=== PATIENT | female | born 1940 | race Caucasian/White ===

== ENCOUNTER 2018-04-09 15:15 | Inpatient (IN) | payer MEDICARE, BC ==
[2018-04-09] MEDS ORDERED: NS 0.9% 1000 ML* 1,000 ML IV ONE (17:23)
[2018-04-09] MEDS ORDERED: Ondansetron INJ* 2 MG/ML VIAL IV ONE (17:23)
--- NOTE | 2018-04-09 17:25 | ED ---
Influenza-Like Illness - HPI Summary HPI Summary: Pt is a 78 y/o female who presents to the ED c/o N/V for the past 4 days. She began to have chills, which then progressed to nausea and dry-heaving. As per daughter, she has not vomited anything up since she has not eaten much due to her decreased appetite. Pt also c/o fatigue, generalized weakness, SOB, runny nose, and mild dry cough. She denies any abdominal pain, CP, diarrhea, constipation, or sore throat. - History of Current Complaint Chief Complaint: EDFluSymptoms Time Seen by Provider: 04/09/18 16:57 Hx Obtained From: Patient, Family/Repatcher - Daughter Onset/Duration: Gradual Onset, Lasting Days - 4, Still Present Associated Signs & Symptoms: Cough, Vomiting - Allergy/Home Medications Allergies/Adverse Reactions: Allergies Allergy/AdvReac Type Severity Reaction Status Date / Time azithromycin Allergy Hives Verified 04/09/18 18:46 iodine Allergy Hives Verified 04/09/18 18:46 levofloxacin Allergy Rash Verified 04/09/18 18:[address] Allergy Hives Uncoded 02/04/14 08:51 PMH/Surg Hx/FS Hx/Imm Hx Endocrine/Hematology History: Denies: Hx Diabetes, Hx Sickle Cell Disease, Hx Thyroid Disease Cardiovascular History: Reports: Hx Hypertension Respiratory History: Reports: Hx Asthma, Hx Chronic Obstructive Pulmonary Disease (COPD), Hx Pulmonary Embolism - 1975, NO MEDICAL DX FOR EMBOLISM,NEVER REOCCURENCE GI History: Reports: Hx Jaundice - AT AGE 10 HAD "YELLOW JAUNDICE" Denies: Hx Ulcer History: Reports: Hx Renal Disease - abnormal gfr Denies: Other Problems/Disorders Musculoskeletal History: Reports: Hx Arthritis - "a little" Sensory History: Reports: Hx Contacts or Glasses, Other Sensory Impairments - lens replacement Denies: Hx Hearing Aid Opthamlomology History: Reports: Hx Contacts or Glasses, Other Sensory Impairments - lens replacement Neurological History: Denies: Other Neuro Impairments/Disorders - Cancer History Cancer Type, 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 NASAL POLYPECTOMY - 1971, 2000 [facility] [place]. BCC 2002. cataracts- 2001,2009 Hx Anesthesia Reactions: No Infectious Disease History: No Infectious Disease History: Denies: Hx Hepatitis, Hx Human Immunodeficiency Virus (HIV), Hx Shingles, Traveled Outside the [place] in Last 30 Days - Family History Known Family History: Negative: Diabetes - Social History Alcohol Use: None Hx Substance Use: No Substance Use Type: Reports: None Hx Tobacco Use: No Smoking Status (MU): Never Smoked Tobacco Review of Systems Positive: Chills, Fatigue, Other - Generalized weakness. Negative: Fever Positive: Nasal Discharge. Negative: Sore Throat Negative: Chest Pain Positive: Shortness Of Breath, Cough Positive: Vomiting - dry heaves, Nausea, Other - Decreased appetite. Negative: Abdominal Pain All Other Systems Reviewed And Are Negative: Yes Physical Exam - Summary Physical Exam Summary: VITAL SIGNS: Reviewed. GENERAL: Patient is a well-developed and nourished FEMALE who is lying comfortable in the stretcher. Patient is not in any acute respiratory distress. HEAD AND FACE: No signs of trauma. No ecchymosis, hematomas or skull depressions. No sinus tenderness. EYES: PERRLA, EOMI x 2, No injected conjunctiva, no nystagmus. EARS: Hearing grossly intact. Ear canals and tympanic membranes are within normal limits. MOUTH: Oropharynx within normal limits. NECK: Supple, trachea is midline, no adenopathy, no JVD, no carotid bruit, no c- spine tenderness, neck with full ROM. CHEST: Symmetric, no tenderness at palpation LUNGS: Clear to auscultation bilaterally. No wheezing or crackles. CVS: Regular rate and rhythm, S1 and S2 present, no murmurs or gallops appreciated. ABDOMEN: Soft, non-tender. No signs of distention. No rebound no guarding, and no masses palpated. Bowel sounds are normal. EXTREMITIES: FROM in all major joints, no edema, no cyanosis or clubbing. NEURO: Alert and oriented x 3. No acute neurological deficits. Speech is normal and follows commands. SKIN: Dry and warm Triage Information Reviewed: Yes Vital Signs On Initial Exam: Initial Vitals Temp Pulse Resp BP Pulse Ox 101.7 F 92 18 179/81 94 04/09/18 15:16 04/09/18 15:16 04/09/18 15:16 04/09/18 15:16 04/09/18 15:16 Vital Signs Reviewed: Yes Diagnostics - Vital Signs Vital Signs Temp Pulse Resp BP Pulse Ox 04/09/18 15:16 101.7 F 92 18 179/81 94 - Laboratory Result Diagrams: 04/10/18 06:58 04/10/18 06:58 Lab Statement: Any lab studies that have been ordered have been reviewed, and results considered in the medical decision making process. - Radiology CXR Radiology Interpretation Completed By: ED Physician Summary of Radiographic Findings: Cardiomegaly, right diaphragm is elevated. Pending official radiology report. Abdomen XR Radiology Interpretation Completed By: ED Physician Summary of Radiographic Findings: Normal gas pattern, no signs of obstruction. Pending official radiology report. - CT CT A/P CT Interpretation Completed By: Radiologist Summary of CT Findings: 1. Several small stones in the gallbladder and mild dilatation of the CBD which measures 12 mm. Consider ultrasound evaluation. 2. No evidence of obstructive uropathy or bowel obstruction or diverticulitis. ED physician reviewed radiology report. - EKG 18:04 Cardiac Rate: Other Rate - Sinus arhythmia, 93 bpm EKG Rhythm: Sinus Rhythm - Arhythmia ST Segment: Normal EKG Comparison: No Significant Change - Similar compared to 02/16/15 Flu Symptom Course/Dx - Course Assessment/Plan: Pt is a 78 y/o female who presents to the ED c/o N/V for the past 4 days. She began to have chills, which then progressed to nausea and dry- heaving. As per daughter, she has not vomited anything up since she has not eaten much due to her decreased appetite. Pt also c/o fatigue, generalized weakness, SOB, runny nose, and mild dry cough. She denies any abdominal pain, CP , diarrhea, constipation, or sore throat. Initially the patient came in to the emergency department the nurse reported that the patient was positive for the SIRS criteria. The patient was given IV fluids 30 ccs per KG and she was given Rocephin. Blood work without any significant abnormality except for use of 84 family. 705, CPK is 1029, CRP 109, pro-calcitonin is 5.2. Urinalysis is negative for UTI. INFLUENZA A and B is negative. X-ray of the chest shows no acute cardiopulmonary disease. Because of the nausea I gave the patients Zofran. Patient continues to report that his no abdominal pain. CT of the abdomen and pelvis IMPRESSION: 1. Several small stones in the gallbladder and mild dilatation of the CBD which. measures 12 mm. Consider ultrasound evaluation. At this point I will for the right upper quadrant ultrasound. I discussed my physical exam, findings and test results with Dr. Perez from the hospitalist services who accepted the patient for admission. The patient is hemodynamically stable alert and oriented 3. - Diagnoses Provider Diagnoses: Sepsis, Nausea & vomiting - Physician Notifications Discussed Care Of Patient With: Josie Perez Time Discussed With Above Provider: 21:50 Instructed by Provider To: Admit As Inpatient Discharge - Sign-Out/Discharge Documenting (check all that apply): Patient Departure - Admit - Discharge Plan Condition: Stable Disposition: ADMITTED TO [facility] - Billing Disposition and Condition Condition: STABLE Disposition: Admitted to [facility] - Attestation Statements Document Initiated by Jovany: Yes Documenting Scribe: Jeanne Russ Provider For Whom Jovany is Documenting (Include Credential): Blu Iverson MD Scribe Attestation: IJeanne, scribed for Blu Iverson MD on 04/10/18 at 2123. Scribe Documentation Reviewed: Yes Provider Attestation: The documentation as recorded by the Jeanne urbano accurately reflects the service I personally performed and the decisions made by me, Blu Iverson MD Status of Scribe Document: Viewed
[2018-04-09] MEDS ORDERED: NS 0.9% 1000 ML*IV.FLUID IV ONE (17:30)
[2018-04-09] MEDS ORDERED: cefTRIAXone(*) 1 GM in NS 0.9% 50 ML* 50 ML IVPB ONE (17:34)
[2018-04-09] MEDS ORDERED: cefTRIAXone(*) 1 GM ADVAN/BAG ONE (17:47)
[2018-04-09 17:56] LABS: Urine Appearance Clear; Urine Blood 2+ (Negative); Urine Color Yellow; Urine Ketones 2+ (Negative); Urine Protein 1+(30 mg/dL) (Negative); Urine Red Blood Cell 1+(3-5/hpf) (Absent); Urine Specific Gravity 1.018 (1.010-1.030); Urine Urobilinogen Negative (Negative); Urine White Blood Cell Trace(0-5/hpf) (Absent)
[2018-04-09 18:19] LABS: ABS Basophils 0.1 10^3/ul (0-0.2); ABS Eosinophils 0 10^3/ul (0-0.6); ABS Lymphocytes 0.2 10^3/ul (1.0-4.8); ABS Monocytes 0.4 10^3/ul (0-0.8); ABS Neutrophils 7.1 10^3/ul (1.5-7.7); ABS Nucleated RBC 0 10^3/ul; Eosinophil % 0 %; Hematocrit 38 % (35-47); Hemoglobin 12.5 g/dl (12.0-16.0); Lymphocyte % 3.1 %; Mean Corpuscular HGB Conc 33 g/dl (31-36); Mean Corpuscular Hemoglobin 28 pg (27-31); Mean Corpuscular Volume 85 fL (80-97); Mean Platelet Volume 10.2 fL (7.4-10.4); Nucleated Red Blood Cells % 0; Platelet Count 102 10^3/ul (150-450); Red Cell Distribution Width 14 % (10.5-15); White Blood Count 7.8 10^3/ul (3.5-10.8)
[2018-04-09 18:50] LABS: EGFR Non-African American 52.5 (>60)
[2018-04-09] MEDS ORDERED: Acetaminophen TAB* 325 MG PO ONE (21:43)
[2018-04-09] MEDS ORDERED: Ondansetron INJ* 2 MG/ML VIAL IV PRN (22:25)
[2018-04-09] MEDS ORDERED: Acetaminophen TAB* 325 MG PO PRN (22:25)
[2018-04-09] MEDS ORDERED: Albuterol 2.5 MG/3 ML NEB.SOL* (0.083%) INH PRN (22:25)
[2018-04-10] MEDS ORDERED: DOXYcycline IV* 100 MG in NS 0.9% 250 ML* 250 ML IVPB SCH ×2
--- NOTE | 2018-04-10 00:12 | HP ---
CC: Dr. Ramirez * HISTORY AND PHYSICAL: DATE OF ADMISSION: 04/09/18 PRIMARY CARE PROVIDER: Dr. Ramirez. ATTENDING PHYSICIAN WHILE IN THE HOSPITAL: Dr. Josie Magallanes * (report dictated by Aneesh Vincent NP). CHIEF COMPLAINT: 1. Weakness. 2. Not feeling well. 3. Chills. HISTORY OF PRESENT ILLNESS: Ms. Thibodeaux is a 78-year-old female patient who has a history of hypertension, asthma, and a history of allergic rhinitis, who says the last 3 to 4 days, she just has not been feeling well. She has generally felt some malaise, fatigued, tired, just laid in bed all day Friday, decreased appetite, and not feeling well. She does admit to having a cough. She says that she has had more of a runny nose than normal. Denies any sore throat, denies any abdominal pain. She did state that she was having dry heaves and felt nauseous. Denies any pain and denies having any open areas in the skin or redness. Denies any change in medications and says that she did not fall and was not on the ground for prolonged periods of time. She was concerned because of the fact that she just was not feeling well and she was not getting any better and her appetite was not getting any better; so she came into the ED today because she noted that she did have fevers. She came in, had a fever as a high as 103. So because of this she came into the ED, was evaluated. There was concern for infection, but no real obvious source had been found. Because of this, we were asked to evaluate for admission. PAST MEDICAL HISTORY: Significant for: 1. Hypertension. 2. Asthma. 3. Allergic rhinitis. PAST SURGICAL HISTORY: 1. She has had tonsillectomy. 2. Cataract extraction. 3. Skin cancer removal. HOME MEDICATIONS: Include: 1. Multivitamin 1 tablet daily. 2. Calcium carbonate 1 tablet p.o. daily. 3. Tylenol 650 mg every 4 hours as needed. 4. [place] 3 fatty acids 1 capsule daily. 5. Singulair 10 mg p.o. daily. 6. Flonase 50 mcg nasally daily. 7. Prednisone 5 mg daily. 8. Advair 1 puff inhaled b.i.d. ALLERGIES TO MEDICATIONS: Include AZITHROMYCIN, IV DYE, LEVAQUIN, and IODINE. FAMILY HISTORY: Her mother lived to the age of 97. Father at the age of 58 from an [facility]. SOCIAL HISTORY: She does not smoke. She does not drink. Surrogate decision maker is her daughter. REVIEW OF SYSTEMS: There is a documented fever here. She denied having any significant weight change. There was no double vision. She denied having any ear discharge. There is rhinorrhea. There was no sore throat, no thyroid enlargement. She denied having any chest pain. There was no orthopnea. There was no nocturnal dyspnea. There was no abdominal pain. There was again dry heaves with nausea, but no vomiting. There was no dysuria reported. No seizure , no loss of consciousness, no pruritus, and no skin ulcerations. Review of 14 systems completed, all others negative. PHYSICAL EXAMINATION GENERAL: At this time, Mrs. Thibodeaux is a 78-year-old female patient. She is sitting in the ED stretcher. She does not appear to be in any acute distress. She appears to be well-nourished and well-developed. VITAL SIGNS: Blood pressure 150/96, pulse 85, respirations 16, O2 sat is 96%. Temperature again was 103.5 HEENT: Head atraumatic and normocephalic. Eyes: EOMs are intact. Sclerae anicteric and not pale. Throat: Oral mucosa appears to be dry. No oropharyngeal erythema. NECK: Supple. LUNGS: Clear to auscultation bilaterally. They were diminished in the bases, but no wheezes, rales, or rhonchi. HEART: Sounds S1 and S2. Regular rate and rhythm. No murmurs, rubs, or gallops. ABDOMEN: Soft, flat, and nontender. Bowel sounds present. EXTREMITIES: Pulses were 2+. She is moving all 4 extremities with 5/5 strength. NEUROLOGIC: She is awake, alert, oriented x3. Tongue midline. Senior Litigation Paralegal are equal. She had no gross focal deficits. The skin is intact. LABORATORY DATA: Reveal a WBC of 7.8, RBC of 4.40, hemoglobin of 12.5, hematocrit of 38, platelet count of 102, ESR was 84. The PTT was 25.7, fibrinogen was 705. Her sodium was 138, potassium was 3.9, chloride of 103, bicarb 23, BUN 21, creatinine of 1.02. Glucose 102, lactic 0.9, calcium 8.9. Mag 1.9. Total bili 0.5. AST 53, ALT 42, alk phos 50, ammonia 36. CK was 1029 , troponin 0.03. CRP of 109. BNP 155. Amylase normal. Lipase normal. Procalcitonin 5.2. Urine showed 1+ protein, 2+ ketones, 2+ blood, and 1+ rbc. Serology was negative for flu. She had multiple imaging in the ED starting out EKG shows a normal sinus rhythm at a rate of 93. She had no ST elevation or T- wave inversions noted. She had an abdomen x-ray, which showed nonspecific bowel gas. CT of the abdomen and pelvis showed several small stones in the gallbladder and mild dilatation of the common bile duct, which measures 12 mm. Consider ultrasound evaluation. No evidence for obstructive uropathy or bowel obstruction or diverticulitis. Chest x-ray obtained today did show pulmonary edema, may be developing infiltrate in her right lower lobe, possibly left upper lobe. We will wait official report. Old medical records reviewed. ASSESSMENT AND PLAN: Mrs. Thibodeaux is a 78-year-old female patient coming into the ED today with complaints of feeling week and unsteady. On evaluation concerned for infection and she did have evidence of systemic inflammatory response syndrome. She will be admitted under inpatient status for: 1. Systemic inflammatory response syndrome. Etiology is unclear. I am not quite sure as to where the source of infection may be. I am concerned of the lungs given the fact she does have respiratory complaints. Abdominal ultrasound is pending because of the gallbladder duct dilatation. However, her LFTs are stable. Her ALT was mildly elevated. I will repeat that in the morning. I do think that she should get the 20 cc/kg bolus which she has already gotten. I will place her on antibiotics in the form of doxycycline and Rocephin. We will ibanez culture her and we will follow. I did check a Lyme serology as well. We will get a legionella antigen, strep pneumo antigen, and sputum culture if possible. 3. Rhabdomyolysis. Etiology is unclear. Certainly could be related to viral infection. I will go ahead and trend these. We will trend her BMP. We will hydrate and follow for the time being. 4. Hypertension. We will continue meds as prescribed. 5. Asthma. Continue her p.r.n. albuterol. 6. Elevated ESR and CRP. Again etiology unclear. Again, we are ruling out infection. We will monitor for the time being. 7. DVT prophylaxis. She will be placed on heparin subcu. 8. Code status. She wishes to be a DNR. 9. Fluids, electrolytes, and nutrition. She can have a regular diet. TIME SPENT: Time spent on the admission 60 minutes, greater than half the time was spent [id number] with the patient obtaining my history and physical. Other half the time spent going over the plan of care with the patient, implementing the plan of care. I did discuss the plan of care with my attending , Dr. Magallanes. She is in agreement. ANEESH VINCENT NP [id number]/[facility] #: [id number] MTDD
[2018-04-10] MEDS: NS 0.9% 1000 ML* 1,000 ML IV SCH ×2 (01:03→14:28)
[2018-04-10 01:51] LABS: EGFR Non-African American 58.5 (>60)
[2018-04-10] MEDS: Heparin VIAL(*) 5000 UNITS/ML VIAL (FIVE THOUSAND) SUBCUT SCH ×3 (04:46→21:04)
[2018-04-10 07:28] LABS: Hematocrit 31 % (35-47); Hemoglobin 10.1 g/dl (12.0-16.0); Mean Corpuscular HGB Conc 32 g/dl (31-36); Mean Corpuscular Hemoglobin 28 pg (27-31); Mean Corpuscular Volume 86 fL (80-97); Red Blood Count 3.61 10^6/ul (4.00-5.40); Red Cell Distribution Width 15 % (10.5-15); White Blood Count 6.1 10^3/ul (3.5-10.8)
[2018-04-10 07:38] LABS: EGFR Non-African American 69.6 (>60)
[2018-04-10] MEDS: Mometasone/Formoter 200/5 MDI INH SCH (07:57)
[2018-04-10 08:21] LABS: ABS Basophils 0 10^3/ul (0-0.2); ABS Eosinophils 0 10^3/ul (0-0.6); ABS Lymphocytes 0.7 10^3/ul (1.0-4.8); ABS Monocytes 0.5 10^3/ul (0-0.8); ABS Neutrophils 4.8 10^3/ul (1.5-7.7); ABS Nucleated RBC 0 10^3/ul; Eosinophil % 0.7 %; Lymphocyte % 11.7 %; Mean Platelet Volume 10.5 fL (7.4-10.4); Nucleated Red Blood Cells % 0; Platelet Count 77 10^3/ul (150-450)
[2018-04-10] MEDS: predniSONE TAB* 5 MG PO SCH (08:24)
[2018-04-10] MEDS: Montelukast Sodium TAB* 10 MG PO SCH (08:24)
[2018-04-10] MEDS ORDERED: Zosyn per Pharmacy* NOTE FOLLOW UP SCH (09:00)
[2018-04-10] MEDS ORDERED: ZOSYN 3.375 GM x ONE DOSE over 30 miuntes IVPB ×2 (09:00)
--- NOTE | 2018-04-10 10:33 | CONS ---
CONSULTATION REPORT: DATE OF CONSULT: 04/10/18 REQUESTING PROVIDER: Aneesh Vincent NP CONSULTING SERVICE: Infectious Disease. REASON FOR CONSULT: Bacteremia. IMPRESSION: 1. Gram-negative bacilli in both anaerobic bottles, but aerobic bottles were pending. This is in the setting of rigors. I suspect a gastrointestinal including biliary source if this does end up being gram-negative anaerobes. It could also be an aerobe, we do not have that information yet. She has biliary stones, otherwise benign gallbladder on ultrasound and no right upper quadrant pain. She has no dysuria or flank pain. She has not had diarrhea to suggest enterocolitis. 2. Hypertension. 3. Tonsillectomy. RECOMMENDATIONS: I agree with changing her Zosyn while we await speciation. CT abdomen and pelvis did not show any abscess. She has no thoracic symptoms. If the urine culture is negative and this is an anaerobe, then we will obtain a HIDA scan. HISTORY OF PRESENT ILLNESS: This is a 78-year-old woman with hypertension, admitted with rigors. They started Friday. She had some loss of balance, which resolved as did the rigors. She slept all day Friday and then Friday morning felt a bit better, had some more rigors again in the afternoon, same thing yesterday, so she came to the hospital. Her appetite has been off during that time and sips of fluid would cause dry heaves but no vomiting and no diarrhea. Here she had a white count of 7, sed rate of 84, C-reactive protein of 100. The ALT is 42, AST was slightly elevated at 53. Bilirubin was 0.3, alkaline phosphatase 39. CT scan showed biliary stones. Urinalysis showed blood and ketones. Influenza PCR is negative. She was started on ceftriaxone and doxycycline. Chest x-ray was unremarkable. She had no cough or trouble breathing. When the blood cultures came back, she was switched this morning to Zosyn. Today, she complains of no pain, no dysuria, no flank pain. She has been taking sips of water without dry heaves. Her appetite is off still. She had diarrhea after the CT contrast but none before admission. PAST MEDICAL HISTORY: 1. Hypertension. 2. Sepsis in 2015, no cause. 3. Asthma. 4. Allergic rhinitis. 5. Cataract extraction. 6. Status post tonsillectomy. 7. History of skin cancer removal. MEDICATIONS: 1. Tylenol. 2. Albuterol. 3. Heparin subcutaneous injection. 4. Singulair. 5. Zosyn 3.375 g IV every 8 hours. ALLERGIES: AZITHROMYCIN, IV DYE, LEVAQUIN, and IODINE. FAMILY HISTORY: Mother at 97. Father at 58 from [place]. SOCIAL HISTORY: She lives in [place] with her daughter. No travel, no sick contacts. REVIEW OF SYSTEMS: All negative except as noted above to 14-point review in the history of present illness. PHYSICAL EXAM: Vital Signs: Temperature 37, heart rate 70, respiratory rate 18 , blood pressure 143/65, oxygen saturation 94% on room air. In general, she is awake, not in distress. Neurologic: She is oriented x3. Follows commands. Moves all extremities. HEENT: There is no conjunctival hemorrhage. Oropharynx without lesions. Neck: Supple without mass. Heart: Regular rate and rhythm without murmurs, rubs, or gallops. Lungs: Clear to auscultation bilaterally. Abdomen: Soft, nontender, nondistended. There are bowel sounds present. There is no right upper quadrant tenderness to palpation. Skin: There is no rash or splinter hemorrhage. She has multiple SK's on her thorax. Musculoskeletal: There is no spine tenderness to palpation or joint synovitis. LABORATORY DATA: White blood cell count 6, hemoglobin 10, platelets 77,000. Creatinine 0.8. Please see impression and recommendations as outlined above, which I have discussed with Becky Villatoro NP. Thank you for asking me to Ms. Thibodeaux in consultation. [id number]/[facility] #: [id number] [facility]ITAL[facility]eg
--- NOTE | 2018-04-10 12:49 | PN ---
Subjective Date of Service: 04/10/18 Interval History: Pt resting comfortably in bed. Says she feels much better than yesterday after receiving IVF and antibiotics, less fatigued and no longer unstable on her feet. Appetite has returned and ate breakfast. Denies abdominal pain, nausea/ vomiting. Denies dysuria or suprapubic pain. Did have an episode of diarrhea after receiving contrast, but has resolved. Is reporting some shortness of breath on exertion. Uses albuterol prn at home and has not used here. Denies chest pain, dizziness, headache, numbness or tingling in extremities. Objective Active Medications: Acetaminophen (Tylenol Tab*) 650 mg PO Q4H PRN PRN Reason: FEVER/PAIN Albuterol (Ventolin 2.5 Mg/3 Ml Neb.Jane*) 2.5 mg INH Q2H PRN PRN Reason: SOB/WHEEZING Heparin Sodium (Porcine) (Heparin Vial(*)) 5,000 units SUBCUT Q8HR [facility] Last Admin: 04/10/18 04:46 Dose: 5,000 units Sodium Chloride (Ns 0.9% 1000 Ml*) 1,000 mls @ 125 mls/hr IV PER RATE [facility] Last Admin: 04/10/18 01:03 Dose: 125 mls/hr Piperacillin Sod/Tazobactam (Sod 3.375 gm/ Sodium Chloride) 100 mls @ 25 mls/ hr IVPB Q8H [facility] Mometasone Furoate/Formoterol Fumar (Dulera 200/5 Mdi*) 2 puff INH BID [facility] Last Admin: 04/10/18 07:57 Dose: 2 puff Montelukast Sodium (Singulair Tab*) 10 mg PO DAILY [facility] Last Admin: 04/10/18 08:24 Dose: 10 mg Ondansetron HCl (Zofran Inj*) 4 mg IV Q6H PRN PRN Reason: NAUSEA Pharmacy Consult (Zosyn Per Pharmacy*) 1 note FOLLOW UP .ZOSYN PER PHARMACY [facility] Prednisone (Deltasone Tab*) 5 mg PO DAILY [facility] Last Admin: 04/10/18 08:24 Dose: 5 mg Vital Signs - 8 hr 04/10/18 04/10/18 04/10/18 08:00 08:21 11:20 Temperature 98.3 F 98.5 F Pulse Rate 74 76 Respiratory 18 18 18 Rate Blood Pressure 143/65 160/58 (mmHg) O2 Sat by Pulse 94 94 100 Oximetry Oxygen Devices in Use Now: None Eyes: No Scleral Icterus, PERRLA Ears/Nose/Mouth/Throat: NL Teeth, Lips, Gums, Clear Oropharnyx, Mucous Membranes Moist Neck: NL Appearance and Movements; NL JVP, Trachea Midline Respiratory: Symmetrical Chest Expansion and Respiratory Effort - Expiratory wheezes auscultated in bilateral bases Cardiovascular: NL Sounds; No Murmurs; No JVD, RRR, No Edema Abdominal: NL Sounds; No Tenderness; No Distention, No Hepatosplenomegaly, - - No rebound or guarding. Extremities: No Edema Neurological: Alert and Oriented x 3, NL Muscle Strength and Tone Nutrition: Taking PO's Result Diagrams: 04/10/18 06:58 04/10/18 06:58 Microbiology and Other Data: Microbiology 04/09/18 17:41 Anaerobic Blood Culture - Preliminary Blood Venous 04/09/18 17:42 Anaerobic Blood Culture - Preliminary Blood Venous 04/09/18 17:42 Legionella Urinary Antigen - Final Urine Negative Legionella Antigen Streptococcus pneumoniae Ag Screen - Final Negative S. pneumo Antigen 04/09/18 17:42 Influenza Types A,B Antigen - Final Nasal Specimen received for Influenza A/B Molecular testing Assess/Plan/Problems-Billing Assessment: 78 yo female with PMH, asthma, COPD presented with 3 days of fatigue , decreased appetite, rigors. In the ED, tmax was 103.5. Blood cultures positive for gram neg rods in anaerobic bottles, on zosyn. Urine culture pending. U/S with CBD dilation but no visible choledocholitiasis. - Patient Problems (1) Bacteremia due to Gram-negative bacteria Current Visit: Yes Status: Acute Code(s): R78.81 - BACTEREMIA SNOMED Code( s): 855803253471 Comment: - ID following, appreciate reqs - Blood cultures with gram negative rods x2 in anaerobic bottle. Aerobic pending. Antibiotics changed to zosyn in light of this finding. Suspect GI source. - Afebile now, but Tmax 103.5 last night. No leukocytosis. VSS. Recieved IVF bolus and continued on NS at 125mL/hr - Urine culture pending - Urnie strep and legionella negative - U/S: gallbladder with cholithiasis but no abnormal gallbladder wall thickening + neg chen sign, however will consider HIDA if urine culture neg and bacteria is indeed anaerobic (2) Rhabdomyolysis Current Visit: Yes Status: Acute Code(s): M62.82 - RHABDOMYOLYSIS SNOMED Code(s): 002906923 Comment: - Pt denies any particular muscle aches or pain. She does say she was a little sore after shoveling snow last week. This could be secondary to her infection. - CK initially 1029 but trending down with IVF. Renal function WNL. - Continue IVF (3) Asthma Current Visit: No Status: Acute Code(s): J45.909 - UNSPECIFIED ASTHMA, UNCOMPLICATED SNOMED Code(s): 268355499 Comment: - Some mild expiratory wheezing on exam and pt reports some shortness of breath with extertion. Will give albuterol neb. - Continue dulera and PRN albuterol - Has been on 5mg prednisone for about 20yrs, unclear why (4) Thrombocytopenia Current Visit: Yes Status: Acute Code(s): D69.6 - THROMBOCYTOPENIA, UNSPECIFIED SNOMED Code(s): 087611388 Comment: - Could be in the setting of active infection - Will continue to monitor. Pt has had plts 83-114 on previous admissions. (5) DVT prophylaxis Current Visit: No Status: Acute Code(s): KPL4450 - SNOMED Code(s): 442144579 Comment: - Contineu subq heparin (6) Full code status Current Visit: Yes Status: Acute Code(s): Z78.9 - OTHER SPECIFIED HEALTH STATUS SNOMED Code(s): 801099621 Status and Disposition: Inpatient. Anticipate discharge home when medically stable.
[2018-04-10] MEDS: ZOSYN 3.375 GM Q8H per EXTENDED INFUSION IVPB SCH ×4 (14:24→21:04)
[2018-04-10] MEDS ORDERED: cefTRIAXone(*) 1 GM in NS 0.9% 50 ML* 50 ML IVPB SCH (18:00)
[2018-04-10] MEDS: amLODIPine TAB* 5 MG PO SCH (22:02)
[2018-04-11] MEDS: Mometasone/Formoter 200/5 MDI INH SCH ×3 (01:55→19:29)
[2018-04-11] MEDS: Heparin VIAL(*) 5000 UNITS/ML VIAL (FIVE THOUSAND) SUBCUT SCH ×3 (05:58→21:16)
[2018-04-11] MEDS: ZOSYN 3.375 GM Q8H per EXTENDED INFUSION IVPB SCH ×4 (05:58→13:58)
[2018-04-11 06:57] LABS: ABS Basophils 0 10^3/ul (0-0.2); ABS Eosinophils 0.1 10^3/ul (0-0.6); ABS Lymphocytes 1.4 10^3/ul (1.0-4.8); ABS Monocytes 0.6 10^3/ul (0-0.8); ABS Nucleated RBC 0 10^3/ul; Eosinophil % 1.4 %; Hematocrit 30 % (35-47); Hemoglobin 9.9 g/dl (12.0-16.0); Lymphocyte % 22.6 %; Mean Corpuscular HGB Conc 33 g/dl (31-36); Mean Corpuscular Hemoglobin 28 pg (27-31); Mean Corpuscular Volume 86 fL (80-97); Mean Platelet Volume 10.5 fL (7.4-10.4); Nucleated Red Blood Cells % 0; Platelet Count 91 10^3/ul (150-450); Red Blood Count 3.53 10^6/ul (4.00-5.40); Red Cell Distribution Width 15 % (10.5-15); White Blood Count 6.1 10^3/ul (3.5-10.8)
[2018-04-11] MEDS: predniSONE TAB* 5 MG PO SCH (08:15)
[2018-04-11] MEDS: Montelukast Sodium TAB* 10 MG PO SCH (08:15)
[2018-04-11] MEDS: amLODIPine TAB* 5 MG PO SCH (08:15)
[2018-04-11] MEDS ORDERED: Potassium Chlor TAB* 20 MEQ TAB.ER PO ONE ×2 (08:47→11:00)
--- NOTE | 2018-04-11 15:05 | PN ---
Subjective Date of Service: 04/11/18 Interval History: Pt resting comfortably in bed, no acute distress. Denies abdominal pain, nausea/ vomiting. Appetite has returned and tolerating regular diet. Denies chest pain, shortness of breath. Does feel like taking a deep breath is a little harder than usual in certain positions. Denies headache, dizziness, numbness or tingling in extremities. Objective Active Medications: Acetaminophen (Tylenol Tab*) 650 mg PO Q4H PRN PRN Reason: FEVER/PAIN Albuterol (Ventolin 2.5 Mg/3 Ml Neb.Jane*) 2.5 mg INH Q2H PRN PRN Reason: SOB/WHEEZING Amlodipine Besylate (Norvasc Tab*) 5 mg PO DAILY [facility] Last Admin: 04/11/18 08:15 Dose: 5 mg Heparin Sodium (Porcine) (Heparin Vial(*)) 5,000 units SUBCUT Q8HR [facility] Last Admin: 04/11/18 14:05 Dose: 5,000 units Sodium Chloride (Ns 0.9% 1000 Ml*) 1,000 mls @ 125 mls/hr IV PER RATE [facility] Last Admin: 04/10/18 14:28 Dose: 125 mls/hr Piperacillin Sod/Tazobactam (Sod 3.375 gm/ Sodium Chloride) 100 mls @ 25 mls/ hr IVPB Q8H [facility] Stop: 04/11/18 18:00 Last Admin: 04/11/18 13:58 Dose: 25 mls/hr Ceftriaxone Sodium 1 gm/ (Sodium Chloride) 50 mls @ 200 mls/hr IVPB Q24H [facility] Mometasone Furoate/Formoterol Fumar (Dulera 200/5 Mdi*) 2 puff INH BID [facility] Last Admin: 04/11/18 07:44 Dose: 2 puff Montelukast Sodium (Singulair Tab*) 10 mg PO DAILY [facility] Last Admin: 04/11/18 08:15 Dose: 10 mg Ondansetron HCl (Zofran Inj*) 4 mg IV Q6H PRN PRN Reason: NAUSEA Pharmacy Consult (Zosyn Per Pharmacy*) 1 note FOLLOW UP .ZOSYN PER PHARMACY [facility] Stop: 04/11/18 18:00 Prednisone (Deltasone Tab*) 5 mg PO DAILY [facility] Last Admin: 04/11/18 08:15 Dose: 5 mg Vital Signs - 8 hr 12/08/18 12/08/18 12/08/18 07:36 07:47 08:00 Temperature 98.2 F Pulse Rate 71 71 Respiratory 16 16 16 Rate Blood Pressure 171/79 (mmHg) O2 Sat by Pulse 95 94 Oximetry 04/11/18 11:07 Temperature 97.4 F Pulse Rate 67 Respiratory 20 Rate Blood Pressure 155/83 (mmHg) O2 Sat by Pulse 95 Oximetry Oxygen Devices in Use Now: None Eyes: No Scleral Icterus Ears/Nose/Mouth/Throat: NL Teeth, Lips, Gums, Mucous Membranes Moist Neck: NL Appearance and Movements; NL JVP, Trachea Midline Respiratory: Symmetrical Chest Expansion and Respiratory Effort, Clear to Auscultation Cardiovascular: NL Sounds; No Murmurs; No JVD, RRR, No Edema Abdominal: NL Sounds; No Tenderness; No Distention Extremities: No Edema, No Clubbing, Cyanosis Skin: No Rash or Ulcers, - - chronic venous stasis changes to BLE. Skin tags on right neck. Neurological: Alert and Oriented x 3, NL Muscle Strength and Tone Nutrition: Taking PO's Result Diagrams: 04/11/18 06:29 04/11/18 06:29 Microbiology and Other Data: Microbiology 04/09/18 17:41 Anaerobic Blood Culture - Preliminary Blood Venous 04/09/18 17:42 Anaerobic Blood Culture - Preliminary Blood Venous 04/09/18 17:42 Legionella Urinary Antigen - Final Urine Negative Legionella Antigen Streptococcus pneumoniae Ag Screen - Final Negative S. pneumo Antigen 04/09/18 17:42 Influenza Types A,B Antigen - Final Nasal Specimen received for Influenza A/B Molecular testing Assess/Plan/Problems-Billing Assessment: 78 yo female with PMH, asthma, COPD presented with 3 days of fatigue , decreased appetite, rigors. In the ED, tmax was 103.5. Blood cultures positive for ecoli x 3 on zosyn initially, now ceftriaxone. Urine culture neg. U/S with CBD dilation but no visible choledocholitiasis. - Patient Problems (1) Bacteremia due to Gram-negative bacteria Current Visit: Yes Status: Acute Code(s): R78.81 - BACTEREMIA SNOMED Code( s): 032377022985 Comment: - ID following, appreciate reqs - Blood cultures with E coli in 3 bottles. Suspect GI source. Urine culture negative. On zosyn initially, Dr Fay ok with narrowing to ceftriaxone as sensitivites have returned. - U/S: gallbladder with cholithiasis but no abnormal gallbladder wall thickening + neg chen sign, however will do HIDA on Friday to further evaluate as no source has been identified. - Afebile now. No leukocytosis. VSS. Recieved IVF hydration. (2) Rhabdomyolysis Current Visit: Yes Status: Acute Code(s): M62.82 - RHABDOMYOLYSIS SNOMED Code(s): 114665275 Comment: - CK trending down. Renal function WNL. - Pt denies any particular muscle aches or pain. She does say she was a little sore after shoveling snow last week. This could be secondary to her infection. (3) Asthma Current Visit: No Status: Acute Code(s): J45.909 - UNSPECIFIED ASTHMA, UNCOMPLICATED SNOMED Code(s): 919345126 Comment: - Lungs clear to auscultation. No evidence of acute exacerbation - Continue dulera and PRN albuterol - Has been on 5mg prednisone for about 20yrs, unclear why (4) Thrombocytopenia Current Visit: Yes Status: Acute Code(s): D69.6 - THROMBOCYTOPENIA, UNSPECIFIED SNOMED Code(s): 306161919 Comment: - Could be in the setting of active infection. Trending up today. - Will continue to monitor. Pt has had plts 83-114 on previous admissions. (5) DVT prophylaxis Current Visit: No Status: Acute Code(s): OYM9278 - SNOMED Code(s): 646215486 Comment: - Contineu subq heparin (6) Full code status Current Visit: Yes Status: Acute Code(s): Z78.9 - OTHER SPECIFIED HEALTH STATUS SNOMED Code(s): 221221546 Status and Disposition: Inpatient. Anticipate discharge home when medically stable.
[2018-04-11] MEDS: cefTRIAXone(*) 1 GM in NS 0.9% 50 ML* 50 ML IVPB SCH (21:16)
[2018-04-12] MEDS: Heparin VIAL(*) 5000 UNITS/ML VIAL (FIVE THOUSAND) SUBCUT SCH ×3 (05:30→23:06)
[2018-04-12 06:50] LABS: ABS Basophils 0 10^3/ul (0-0.2); ABS Eosinophils 0.2 10^3/ul (0-0.6); ABS Lymphocytes 1.4 10^3/ul (1.0-4.8); ABS Monocytes 0.5 10^3/ul (0-0.8); ABS Neutrophils 2.9 10^3/ul (1.5-7.7); ABS Nucleated RBC 0 10^3/ul; Eosinophil % 3.2 %; Hematocrit 33 % (35-47); Hemoglobin 10.7 g/dl (12.0-16.0); Lymphocyte % 28.1 %; Mean Corpuscular HGB Conc 33 g/dl (31-36); Mean Corpuscular Hemoglobin 28 pg (27-31); Mean Corpuscular Volume 86 fL (80-97); Mean Platelet Volume 10.2 fL (7.4-10.4); Nucleated Red Blood Cells % 0.1; Platelet Count 108 10^3/ul (150-450); Red Blood Count 3.78 10^6/ul (4.00-5.40); Red Cell Distribution Width 15 % (10.5-15); White Blood Count 5.1 10^3/ul (3.5-10.8)
[2018-04-12 07:05] LABS: EGFR Non-African American 65.7 (>60)
[2018-04-12] MEDS: Mometasone/Formoter 200/5 MDI INH SCH ×2 (07:34→19:25)
[2018-04-12] MEDS ORDERED: Potassium Chlor TAB* 20 MEQ TAB.ER PO ONE (07:45)
[2018-04-12] MEDS: predniSONE TAB* 5 MG PO SCH (08:51)
[2018-04-12] MEDS: amLODIPine TAB* 5 MG PO SCH (08:52)
[2018-04-12] MEDS: Montelukast Sodium TAB* 10 MG PO SCH (08:52)
[2018-04-12] MEDS ORDERED: hydrALAZINE IV* 20 MG/ML VIAL IV SLOW PU ONE (10:40)
--- NOTE | 2018-04-12 13:20 | PN ---
Subjective Date of Service: 04/12/18 Interval History: Pt reports she continues to feel better. Today she has been ambulating for the first time since admssion and feels steady on her feet - she does reports she feels a little weak and "winded" after walking a loop around the unit. She denies SOB/CP. No fevers/chills. Reports good appetite. No abdominal pain/Nausea /vomiting/diarrhea Objective Active Medications: Acetaminophen (Tylenol Tab*) 650 mg PO Q4H PRN PRN Reason: FEVER/PAIN Albuterol (Ventolin 2.5 Mg/3 Ml Neb.Jane*) 2.5 mg INH Q2H PRN PRN Reason: SOB/WHEEZING Amlodipine Besylate (Norvasc Tab*) 5 mg PO DAILY [facility]PLAC[facility] BY [facility] Last Admin: 04/12/18 08:52 Dose: 5 mg Heparin Sodium (Porcine) (Heparin Vial(*)) 5,000 units SUBCUT Q8HR [facility]PLAC[facility] Last Admin: 04/12/18 05:30 Dose: 5,000 units Ceftriaxone Sodium 1 gm/ (Sodium Chloride) 50 mls @ 200 mls/hr IVPB Q24H REPLACED BY [facility] Last Admin: 04/11/18 21:16 Dose: 200 mls/hr Mometasone Furoate/Formoterol Fumar (Dulera 200/5 Mdi*) 2 puff INH BID [facility]PL[facility]ED BY [facility] Last Admin: 04/12/18 07:34 Dose: 2 puff Montelukast Sodium (Singulair Tab*) 10 mg PO DAILY [facility] Last Admin: 04/12/18 08:52 Dose: 10 mg Ondansetron HCl (Zofran Inj*) 4 mg IV Q6H PRN PRN Reason: NAUSEA Prednisone (Deltasone Tab*) 5 mg PO DAILY [facility] Last Admin: 04/12/18 08:51 Dose: 5 mg Vital Signs - 8 hr 04/12/18 04/12/18 04/12/18 07:37 07:49 08:00 Temperature 98.0 F Pulse Rate 80 67 Respiratory 18 18 Rate Blood Pressure 185/68 (mmHg) O2 Sat by Pulse 94 96 96 Oximetry 04/12/18 10:21 Temperature Pulse Rate 62 Respiratory Rate Blood Pressure 180/82 (mmHg) O2 Sat by Pulse 95 Oximetry Oxygen Devices in Use Now: None Appearance: 78 yo female sitting up in bed in NAD - A+O x3 Eyes: No Scleral Icterus, PERRLA Ears/Nose/Mouth/Throat: Mucous Membranes Moist Respiratory: Symmetrical Chest Expansion and Respiratory Effort, Clear to Auscultation Cardiovascular: RRR, No Edema Abdominal: NL Sounds; No Tenderness; No Distention Extremities: No Edema, No Clubbing, Cyanosis Skin: No Rash or Ulcers, No Nodules or Sclerosis Neurological: Alert and Oriented x 3, NL Sensation, NL Gait, NL Muscle Strength and Tone Lines/Tubes/Other Access: Clean, Dry and Intact Peripheral IV Nutrition: Taking PO's Result Diagrams: 04/12/18 06:32 04/12/18 06:32 Microbiology and Other Data: Microbiology 04/09/18 17:41 Anaerobic Blood Culture - Preliminary Blood Venous 04/09/18 17:42 Anaerobic Blood Culture - Preliminary Blood Venous 04/09/18 17:42 Legionella Urinary Antigen - Final Urine Negative Legionella Antigen Streptococcus pneumoniae Ag Screen - Final Negative S. pneumo Antigen 04/09/18 17:42 Influenza Types A,B Antigen - Final Nasal Specimen received for Influenza A/B Molecular testing Assess/Plan/Problems-Billing Assessment: 78 yo female with PMH, asthma, COPD presented with 3 days of fatigue , decreased appetite, rigors. In the ED, tmax was 103.5. Blood cultures positive for ecoli x 3 on zosyn initially, now ceftriaxone. Urine culture neg. U/S with GB dilation but no visible choledocholitiasis. - Patient Problems (1) Bacteremia due to Gram-negative bacteria Comment: - much improvement clinically - ID following, appreciate recommendations. On zosyn initially, ID -> ceftriaxone per sensitivites - Blood cultures with E coli in 3 bottles. Suspect GI source. Urine culture negative. Repeat BC negative to date - U/S: gallbladder with cholithiasis but no abnormal gallbladder wall thickening - neg chen sign, she does have biliary stones - plan for HIDA on Friday to further evaluate as no source has been identified. NPO after midnight (2) Rhabdomyolysis Comment: - CK trending down. Renal function WNL. - Pt denies any particular muscle aches or pain. She does say she was a little sore after shoveling snow last week. This could be secondary to her infection. (3) Thrombocytopenia Comment: - Could be in the setting of active infection. Trending up - Will continue to monitor. Pt has had plts 83-114 on previous admissions. (4) Asthma Comment: - No evidence of acute exacerbation - Continue dulera and PRN albuterol - Has been on 5mg prednisone for about 20yrs, unclear why (5) DVT prophylaxis Comment: - subq heparin (6) Full code status Status and Disposition: Inpatient. Anticipate discharge home when medically stable.
[2018-04-12] MEDS: cefTRIAXone(*) 1 GM in NS 0.9% 50 ML* 50 ML IVPB SCH (23:06)
[2018-04-13] MEDS: Heparin VIAL(*) 5000 UNITS/ML VIAL (FIVE THOUSAND) SUBCUT SCH ×3 (05:15→21:04)
[2018-04-13 06:14] LABS: ABS Basophils 0 10^3/ul (0-0.2); ABS Eosinophils 0.2 10^3/ul (0-0.6); ABS Lymphocytes 1.5 10^3/ul (1.0-4.8); ABS Monocytes 0.6 10^3/ul (0-0.8); ABS Neutrophils 3.6 10^3/ul (1.5-7.7); ABS Nucleated RBC 0 10^3/ul; Eosinophil % 3.1 %; Hematocrit 32 % (35-47); Hemoglobin 10.4 g/dl (12.0-16.0); Lymphocyte % 25.2 %; Mean Corpuscular HGB Conc 33 g/dl (31-36); Mean Corpuscular Hemoglobin 28 pg (27-31); Mean Corpuscular Volume 85 fL (80-97); Nucleated Red Blood Cells % 0; Platelet Count 147 10^3/ul (150-450); Red Blood Count 3.75 10^6/ul (4.00-5.40); Red Cell Distribution Width 15 % (10.5-15); White Blood Count 5.9 10^3/ul (3.5-10.8)
[2018-04-13 06:40] LABS: EGFR Non-African American 73.8 (>60)
[2018-04-13] MEDS: Mometasone/Formoter 200/5 MDI INH SCH ×2 (07:30→19:54)
[2018-04-13] MEDS: amLODIPine TAB* 5 MG PO SCH (08:21)
--- NOTE | 2018-04-13 14:43 | PN ---
Subjective Date of Service: 04/13/18 Interval History: Patient resting on bed on assessment. Reports she feels she is improving since admission. Reports diarrhea today. She states she has had 5 episodes of diarrhea today. Denies abd pain, nausea, vomiting. Reports mild weakness, but has been out of bed to walk yesterday and plans to walk again today Denies chest pain, palpitations, sob, dizziness, fever, chills. Patient awaiting HIDA scan Objective Active Medications: Acetaminophen (Tylenol Tab*) 650 mg PO Q4H PRN PRN Reason: FEVER/PAIN Albuterol (Ventolin 2.5 Mg/3 Ml Neb.Jane*) 2.5 mg INH Q2H PRN PRN Reason: SOB/WHEEZING Amlodipine Besylate (Norvasc Tab*) 5 mg PO DAILY [facility] Last Admin: 04/13/18 08:21 Dose: 5 mg Heparin Sodium (Porcine) (Heparin Vial(*)) 5,000 units SUBCUT Q8HR [facility] Last Admin: 04/13/18 05:15 Dose: 5,000 units Ceftriaxone Sodium 1 gm/ (Sodium Chloride) 50 mls @ 200 mls/hr IVPB Q24H [facility] Last Admin: 04/12/18 23:06 Dose: 200 mls/hr Mometasone Furoate/Formoterol Fumar (Dulera 200/5 Mdi*) 2 puff INH BID [facility] Last Admin: 04/13/18 07:30 Dose: 2 puff Montelukast Sodium (Singulair Tab*) 10 mg PO DAILY [facility] Last Admin: 04/12/18 08:52 Dose: 10 mg Ondansetron HCl (Zofran Inj*) 4 mg IV Q6H PRN PRN Reason: NAUSEA Prednisone (Deltasone Tab*) 5 mg PO DAILY [facility] Last Admin: 04/12/18 08:51 Dose: 5 mg Vital Signs - 8 hr 04/13/18 04/13/18 04/13/18 07:39 08:00 11:24 Temperature 97.6 F 98.3 F Pulse Rate 72 68 Respiratory 17 20 18 Rate Blood Pressure 169/68 146/71 (mmHg) O2 Sat by Pulse 95 95 96 Oximetry Oxygen Devices in Use Now: None Appearance: Comfortable, NAD Eyes: No Scleral Icterus Ears/Nose/Mouth/Throat: Mucous Membranes Moist Neck: NL Appearance and Movements; NL JVP Respiratory: Symmetrical Chest Expansion and Respiratory Effort, Clear to Auscultation Cardiovascular: NL Sounds; No Murmurs; No JVD, RRR, No Edema Abdominal: NL Sounds; No Tenderness; No Distention Lymphatic: No Cervical Adenopathy Extremities: No Edema Skin: No Rash or Ulcers Neurological: Alert and Oriented x 3 Nutrition: - - NPO Result Diagrams: 04/13/18 05:49 04/13/18 05:49 Additional Lab and Data: Laboratory Results - last 24 hr 04/13/18 04/13/18 05:49 05:49 WBC 5.9 RBC 3.75 L Hgb 10.4 L Hct 32 L MCV 85 MCH 28 MCHC 33 RDW 15 Plt Count 147 L MPV 10.0 Neut % (Auto) 60.9 Lymph % (Auto) 25.2 Hale % (Auto) 10.1 Eos % (Auto) 3.1 Baso % (Auto) 0.7 Absolute Neuts (auto) 3.6 Absolute Lymphs (auto) 1.5 Absolute Monos (auto) 0.6 Absolute Eos (auto) 0.2 Absolute Basos (auto) 0 Absolute Nucleated RBC 0 Nucleated RBC % 0 Sodium 145 Potassium 3.5 Chloride 110 Carbon Dioxide 27 Anion Gap 8 BUN 11 Creatinine 0.76 Est GFR ( Amer) 89.3 Est GFR (Non-Af Amer) 73.8 BUN/Creatinine Ratio 14.5 Glucose 96 Calcium 8.4 L Total Bilirubin 0.30 AST 28 ALT 36 Alkaline Phosphatase 40 Total Protein 5.4 L Albumin 3.0 L Globulin 2.4 Albumin/Globulin Ratio 1.3 Microbiology and Other Data: Microbiology 04/09/18 22:19 Blood Venous Aerobic Blood Culture - Preliminary No Growth Day 3 04/09/18 22:19 Blood Venous Anaerobic Blood Culture - Preliminary No Growth Day 3 04/09/18 17:41 Blood Venous Aerobic Blood Culture - Preliminary No Growth Day 3 04/09/18 17:41 Blood Venous Anaerobic Blood Culture - Final Escherichia Coli 04/09/18 17:42 Blood Venous Aerobic Blood Culture - Final Escherichia Coli 04/09/18 17:42 Blood Venous Anaerobic Blood Culture - Final Escherichia Coli 04/09/18 17:42 Urine Urine Culture - Final No Growth (<1,000 CFU/mL) 04/09/18 17:42 Urine Legionella Urinary Antigen - Final Negative Legionella Antigen 04/09/18 17:42 Urine Streptococcus pneumoniae Ag Screen - Final Negative S. pneumo Antigen 04/09/18 17:42 Nasal Influenza Types A,B Antigen - Final Specimen received for Influenza A/B Molecular testing Diagnostic Imaging: . EKG Data: . Assess/Plan/Problems-Billing Assessment: 78 yo female with PMH, asthma, COPD presented with 3 days of fatigue , decreased appetite, rigors. In the ED, tmax was 103.5. Blood cultures positive for ecoli x 3 on zosyn initially, now ceftriaxone. Urine culture neg. U/S with GB dilation but no visible choledocholitiasis. - Patient Problems (1) Bacteremia due to Gram-negative bacteria Comment: - Much improvement clinically - ID following, appreciate recommendations. Initially on Zosyn, ID -> Ceftriaxone per sensitivites - Blood cultures with E coli in 3 bottles. Suspect GI source. Urine culture negative. Repeat BC negative to date - U/S: gallbladder with cholithiasis but no abnormal gallbladder wall thickening - neg chen sign, she does have biliary stones - HIDA being completed today. Awaiting results - Discussed with Dr Elaine who will see patient tomorrow. He suspects plan will be antibiotics and follow up as an outpatient. - I have also left message with GI and would appreciate their consult (2) Diarrhea Comment: - I suspect this is due to antibiotics, but I have ordered stool cultures for further evaluation (3) Thrombocytopenia Comment: - Could be in the setting of active infection. Trending up. Now 147 - Will continue to monitor. Pt has had plts 83-114 on previous admissions. (4) Asthma Comment: - No evidence of acute exacerbation - Continue dulera and PRN albuterol - Has been on 5mg prednisone for about 20yrs, unclear why (5) SIRS (systemic inflammatory response syndrome) Comment: - Resolved - On admission met SIRS with HR > 90, Temp > 100.4, RR > 20 (6) DVT prophylaxis Comment: - subq heparin Status and Disposition: Inpatient. Anticipate discharge home when medically stable. Attending: Geronimo Hanson
[2018-04-13] MEDS: Montelukast Sodium TAB* 10 MG PO SCH (16:34)
[2018-04-13] MEDS: predniSONE TAB* 5 MG PO SCH (16:34)
[2018-04-13] MEDS: Clotrimazole 1% CREAM* 45 GM TOPICAL SCH (21:03)
[2018-04-13] MEDS: cefTRIAXone(*) 1 GM in NS 0.9% 50 ML* 50 ML IVPB SCH (21:03)
[2018-04-14] MEDS: Heparin VIAL(*) 5000 UNITS/ML VIAL (FIVE THOUSAND) SUBCUT SCH ×2 (06:07→14:31)
[2018-04-14 06:27] LABS: ABS Basophils 0 10^3/ul (0-0.2); ABS Eosinophils 0.1 10^3/ul (0-0.6); ABS Lymphocytes 1.5 10^3/ul (1.0-4.8); ABS Monocytes 0.6 10^3/ul (0-0.8); ABS Neutrophils 3.5 10^3/ul (1.5-7.7); ABS Nucleated RBC 0 10^3/ul; Eosinophil % 2.5 %; Hematocrit 33 % (35-47); Hemoglobin 11.1 g/dl (12.0-16.0); Lymphocyte % 26.5 %; Mean Corpuscular HGB Conc 34 g/dl (31-36); Mean Corpuscular Hemoglobin 29 pg (27-31); Mean Corpuscular Volume 86 fL (80-97); Mean Platelet Volume 9.9 fL (7.4-10.4); Nucleated Red Blood Cells % 0.1; Platelet Count 191 10^3/ul (150-450); Red Blood Count 3.86 10^6/ul (4.00-5.40); Red Cell Distribution Width 14 % (10.5-15); White Blood Count 5.8 10^3/ul (3.5-10.8)
[2018-04-14 07:40] LABS: EGFR Non-African American 71.6 (>60)
[2018-04-14] MEDS: predniSONE TAB* 5 MG PO SCH (08:21)
[2018-04-14] MEDS: amLODIPine TAB* 5 MG PO SCH (08:21)
[2018-04-14] MEDS: Montelukast Sodium TAB* 10 MG PO SCH (08:21)
[2018-04-14] MEDS: Clotrimazole 1% CREAM* 45 GM TOPICAL SCH (08:23)
[2018-04-14] MEDS: Mometasone/Formoter 200/5 MDI INH SCH ×2 (08:27→19:21)
[2018-04-14] MEDS ORDERED: Fluticasone NASAL SPRAY 50MCG* 16 gm SPRAY BTL BOTH NARES SCH (09:00)
--- NOTE | 2018-04-14 11:57 | CONS ---
CC: Dr. [facility]; [facility] SURGICAL CONSULTATION REPORT: DATE OF CONSULT: 04/14/18 HISTORY OF PRESENT ILLNESS: I was contacted by the hospitalist service yesterday to evaluate Ms. Thibodeaux, a 78-year-old female, who was admitted with concern for urinary tract infection and bacteremia with E. Coli. The patient was started on antibiotics, improved over time and did undergo a workup which did include abdominal ultrasound and a CAT scan. These studies showed evidence of gallstones but without any gallbladder inflammation; however, when the patient showed no evidence of urinary tract infection despite E. Coli bacteremia , the consideration was for the possibility of bacteremia secondary to biliary disease. The patient did present with fatigue and nausea and vomiting to the hospital on 04/09/18. She has been followed by the hospitalist service as well as Infectious Disease. Yesterday, the patient also underwent a HIDA scan. These images and the report were reviewed. Indeed, all images were reviewed by me today. The nuclear study did show open common and cystic bile ducts. It did show slow visualization of the gallbladder; however, at 2 hours and 30 minutes. Today, the patient states she is doing well, feels well. Her appetite is still minimal, but she denies any nausea or vomiting. PAST MEDICAL HISTORY: Asthma. She takes chronic steroids low dose. She also has hypertension. No abdominal surgeries. MEDICATIONS: List reviewed. ALLERGIES: List reviewed. FAMILY HISTORY: Noncontributory. Biliary disease in first cousins, but otherwise parents and children have had no biliary disorders. REVIEW OF SYSTEMS: Intermittent shortness of breath and asthma. Fever upon arrival, but defervesced promptly and has remained in normal numbers. No abdominal pain. Nausea as described. No change in bowel habits. No dysuria. No endocrine disorders. No bleeding or clotting disorders. No neurologic disorders. PHYSICAL EXAM: She is afebrile. Vital signs are stable. Alert and oriented x3. In no apparent distress. Head, Ears, Eyes, Nose, and Throat: Normocephalic and atraumatic. Sclerae anicteric. Abdomen is soft, nondistended , nontender. No hernias or masses noted. No CVA tenderness. Extremities within normal limits. DIAGNOSTIC STUDIES/LAB DATA: Labs reviewed with normal LFTs throughout her stay. Imaging reviewed. IMPRESSION: Bacteremia of unclear etiology, likely urinary tract infection. I do not recognize this to be a biliary event. I can see the patient as an outpatient if she would prefer. At this point, she is happy not to undergo a surgical intervention. Recommend continued antibiotics and followup with Infectious Disease. No surgical intervention. However, again if the patient or discharging physicians wish to have her referred to our offices for cholelithiasis as an outpatient, that is not unreasonable. Otherwise, you can recall us as needed. [id number]/CPS #: [id number] [facility]ASE
[2018-04-14 16:53] VITALS: BP 141/47
--- NOTE | 2018-04-15 00:30 | DS ---
CC: Dr. Abhsihek Elaine; Dr. David Ramirez * DISCHARGE SUMMARY: DATE OF ADMISSION: 04/09/18. DATE OF DISCHARGE: 04/14/18. FINAL DISCHARGE DIAGNOSES: 1. E. coli bacteremia, unclear etiology, possibly from her urinary tract infection that could have been partially treated versus biliary source given her dilated common bile duct at 13 mm, on chronic prednisone. 2. Hypertension. 3. Rhabdomyolysis. 4. Thrombocytopenia. 5. History of asthma. HOSPITAL COURSE: The patient presented to [facility] on 04/09/18 for generalized malaise, weakness, not feeling well with positive chills, decreased appetite, and has some dry heaves, and nauseated without actually vomiting. In the emergency room, she was seen and evaluated. She was noticed to have temperature 103.5, tachycardic. Her blood work did not actually reflect any evidence of leukocytosis. However, she did have elevated of CPK of 1029, and her cultures revealed positive E. coli bacteremia on 2 sets, pansensitive. Given her nausea and vomiting in the emergency room, she underwent abdominal CT scan, which revealed positive gallstone, small, with mild dilation of the common bile duct. Without evidence of bowel obstruction or uropathy that was followed with abdominal ultrasound revealed common bile duct at 13 mm with no visible choledocholithiasis with multiple small gallstones. The patient was covered with intravenous antibiotics throughout the hospital stay with Rocephin and IV fluid. She continued to improve and her urine culture actually was negative. A HIDA scan was followed given her ultrasound and CT scan and the HIDA scan on 04/13/18 shows patent cystic duct with no evidence of acute cholecystitis. I did consult with Surgery and I did speak with Dr. Elaine. At that time, the patient did not have a very strong evidence as the source where the E. coli presented. It is my impression and my high suspicion that it is probably biliary given her gallstones which are very small, which are more problematic than large gallstones that can pass through the common bile duct, cause transient obstruction whether this has been captured at the time of the imaging or she simply passed it before arrival is very hard to tell. At the same time, I do not disagree that it could have been UTI, however, urine cultures were obtained at the same time as the blood and the urine culture was negative. Therefore, kindly Dr. Elaine will follow up the patient as an outpatient and have further discussion whether or not the patient should proceed with elective cholecystectomy given her positive gallstone. PHYSICAL EXAM: Her vitals, temperature 98.3, pulse 85, respiratory rate 16, satting 93%, blood pressure 141/47. Generally, she is awake, alert, oriented, in no apparent cardiac distress. Head and Neck: Normocephalic, atraumatic. Supple. Lungs are clear to auscultation bilaterally. Cardiovascular: S1, S2. Regular rate and rhythm. Abdomen: Positive bowel sounds, soft, nontender. No rebound. No guarding. Extremities: No pedal edema. Skin: She does have slight purpuric rash over the back papular, nonvesicular, and not in cluster, and pruritic in nature. DIAGNOSTIC STUDIES: Abdominal ultrasound showed gallstones with dilated common bile duct, 04/09/18. Ultrasound 04/09/18, no thickened gallbladder wall, dilated common bile duct 15 mm with no evidence of choledocholithiasis. HIDA scan 04/13/18, negative. Microbiology, she has a positive blood culture x2 for E. coli with negative urine culture, negative influenza A and B, and negative for C. diff. Diagnostics throughout the hospital stay, the patient had CBC and chemistry all fairly normal, specifically she has a normal total bili, never had a spike in her bilirubin. However, incidentally she had a positive CPK of 1029, which decreased down to 306 with gentle IV fluid. DISCHARGE AND ASSESSMENT AND PLAN: For the bacteremia E. coli, again I suspect that it is probably secondary to biliary versus urine, although urine culture is negative. Given the finding on the ultrasound and a positive gallstone with dilated common bile duct, although the gallbladder was not affected, I believe this was a transient choledocholithiasis with ascending cholangitis, which probably the culprit is from the gallbladder gallstone. I will defer that for further discussion with surgery as an outpatient. She was given prescription for Augmentin p.o. to complete a 14 days' total course. For her diarrhea, C. diff was ruled out. For her thrombocytopenia, which is transient secondary to her sepsis, resolved. For her rhabdomyolysis, which resolved with IV fluid. DISCHARGE MEDICATIONS: 1. The patient to start taking amlodipine 5 mg daily secondary to elevated blood pressure diagnosed in this hospital stay. 2. Augmentin 875 b.i.d. for 9 more days. 3. Clotrimazole cream to apply to the back given her rash. 4. Continue her medication as per home, calcium with vitamin D. 5. Multivitamin. 6. Singulair 10 daily. 7. Tylenol p.r.n. 8. Advair b.i.d. 9. [place]-3. 10. Prednisone 5 mg daily. 11. Flonase allergy. DISCHARGE INSTRUCTIONS: The patient to follow up with Dr. Abhishek Elaine in 1 month. To follow up with the PCP in 1 to 2 weeks. [id number]/[facility] #: [id number] [facility]
[2018-04-15] MEDS: Mometasone/Formoter 200/5 MDI INH SCH (07:21)
== END 2018-04-14 17:00 | disposition home or self-care (01) | DRG 872 ==
LOC: ED 15:15 → MED 22:21
PROVIDERS: ADMIT Internal Medicine; ATTEND Internal Medicine
DX: A41.51 Sepsis due to Escherichia coli [E. coli] (principal); N39.0 Urinary tract infection, site not specified; M62.82 Rhabdomyolysis; I10 Essential (primary) hypertension; D69.6 Thrombocytopenia, unspecified; J45.909 Unspecified asthma, uncomplicated; K80.80 Other cholelithiasis without obstruction; R19.7 Diarrhea, unspecified; Z85.828 Personal history of other malignant neoplasm of skin; Z79.1 Long term (current) use of non-steroidal anti-inflammatories (NSAID); Z79.52 Long term (current) use of systemic steroids; Z79.899 Other long term (current) drug therapy; Z88.1 Allergy status to other antibiotic agents; Z91.041 Radiographic dye allergy status; Z91.048 Other nonmedicinal substance allergy status; Z82.49 Family history of ischemic heart disease and other diseases of the circulatory system
CPT/HCPCS: 36415; 71046; 74019; 74176; 76705; 78226; 80048; 80053; 80076; 81003; 81015; 82140; 82150; 82550; 83605; 83690; 83735; 83880; 84145; 84443; 84484; 85025; 85060; 85384; 85652; 85730; 86140; 86618; 87040; 87077; 87086; 87186; 87205; 87493; 87899; 93005; 94640; 99283; A9270-GY; A9537; J0360; J0696; J1644; J2405; J2543; J7512

== ENCOUNTER 2018-12-13 12:31 | Inpatient (IN) | payer MEDICARE, BC ==
--- NOTE | 2018-12-13 13:48 | ED ---
Complex/Multi-Sys Presentation - HPI Summary HPI Summary: This patient is a 78 year old F [facility] by daughter with a chief complaint of lightheadedness since three days ago. Patients daughter reports pt has been sleeping a lot, feeling lightheaded, nauseous and dry heaving. Patient denies abdominal pain, pain, burning urination, and vomiting. Pt has PMHx of COPD. Pt was admitted back in April for an E. Coli infection. - History Of Current Complaint Chief Complaint: EDDizziness Time Seen by Provider: 12/13/18 13:24 Hx Obtained From: Patient Onset/Duration: Lasting Days, Still Present Timing: Days Aggravating Factor(s): Nothing Alleviating Factor(s): Nothing Associated Signs And Symptoms: Positive: Nausea, Other - pos - lightheaded, and fatigue. Negative: Vomiting, Abdominal Pain - Allergies/Home Medications Allergies/Adverse Reactions: Allergies Allergy/AdvReac Type Severity Reaction Status Date / Time azithromycin Allergy Hives Verified 04/09/18 18:46 Iodinated Contrast Media Allergy Hives Verified 04/11/18 08:51 [Iodinated Contrast- Oral and IV Dye] iodine Allergy Hives Verified 04/09/18 18:46 levofloxacin Allergy Rash Verified 04/09/18 18:[address] Allergy Hives Uncoded 02/04/14 08:51 PMH/Surg Hx/FS Hx/Imm Hx Endocrine/Hematology History: Denies: Hx Diabetes, Hx Sickle Cell Disease, Hx Thyroid Disease Cardiovascular History: Reports: Hx Hypertension Respiratory History: Reports: Hx Asthma, Hx Chronic Obstructive Pulmonary Disease (COPD), Hx Pulmonary Embolism - 1975, NO MEDICAL DX FOR EMBOLISM,NEVER REOCCURENCE GI History: Reports: Hx Jaundice - AT AGE 10 HAD "YELLOW JAUNDICE" Denies: Hx Ulcer History: Reports: Hx Renal Disease - abnormal gfr Denies: Other Problems/Disorders Musculoskeletal History: Reports: Hx Arthritis - "a little" Sensory History: Reports: Hx Contacts or Glasses, Other Sensory Impairments - lens replacement Denies: Hx Hearing Aid Opthamlomology History: Reports: Hx Contacts or Glasses, Other Sensory Impairments - lens replacement Neurological History: Denies: Other Neuro Impairments/Disorders - Cancer History Cancer Type, Location and Year: basal cell facial Hx Chemotherapy: No Hx Radiation Therapy: No Hx Palliative Cancer Treatment: No - Surgical History Surgery Procedure, Year, and Place: TONSILLECTOMY - 1945. NASAL POLYPECTOMY - 1971, 2000 [facility]. BCC 1971, 2002. cataracts- 2000,2008 Hx Anesthesia Reactions: No Infectious Disease History: No Infectious Disease History: Denies: Hx Hepatitis, Hx Human Immunodeficiency Virus (HIV), Hx Shingles, Traveled Outside the [place] in Last 30 Days - Family History Known Family History: Negative: Diabetes - Social History Alcohol Use: None Hx Substance Use: No Substance Use Type: Reports: None Hx Tobacco Use: No Smoking Status (MU): Never Smoked Tobacco Review of Systems Positive: Nausea. Negative: Abdominal Pain, Vomiting Negative: burning Neurological: Other - pos - lightheaded All Other Systems Reviewed And Are Negative: Yes Physical Exam - Summary Physical Exam Summary: GENERAL: Patient is a well-developed and nourished F who is lying comfortable in the stretcher. Patient is not in any acute respiratory distress. HEAD AND FACE: Normocephalic EYES: PERRLA, EOMI x 2. EARS: Hearing grossly intact. MOUTH: Oropharynx within normal limits. Mucous membrane dry. NECK: Supple, trachea is midline, no adenopathy, no JVD, no carotid bruit. CHEST: Symmetric, no tenderness at palpation LUNGS: Clear to auscultation bilaterally. No wheezing or crackles. CVS: Regular rate and rhythm, S1 and S2 present, no murmurs or gallops appreciated. ABDOMEN: Soft, non-tender. Bowel sounds are normal. No abnormal abdominal pulsations. EXTREMITIES: Full ROM in all major joints, no edema, no cyanosis or clubbing. NEURO: Alert and oriented x 3. No acute neurological deficits. Speech is normal and follows commands. SKIN: Dry and warm Triage Information Reviewed: Yes Vital Signs On Initial Exam: Initial Vitals Temp Pulse Resp BP Pulse Ox 98.4 F 94 14 123/85 92 12/13/18 12:34 12/13/18 12:34 12/13/18 12:34 12/13/18 12:34 12/13/18 12:34 Vital Signs Reviewed: Yes Diagnostics - Vital Signs Vital Signs Temp Pulse Resp BP Pulse Ox 12/13/18 12:34 98.4 F 94 14 123/85 92 - Laboratory Result Diagrams: 12/14/18 05:48 12/14/18 05:48 Lab Statement: Any lab studies that have been ordered have been reviewed, and results considered in the medical decision making process. - Radiology CXR Radiology Interpretation Completed By: Radiologist Summary of Radiographic Findings: CXR reveals, per radiologist, IMPRESSION: Stigmata of obstructive lung disease. No acute pulmonary or cardiac process evident. ED physician has reviewed this radiology report. - CT Abdomen/Pelvis CT CT Interpretation Completed By: Radiologist Summary of CT Findings: Abdomen/Pelvis CT reveals, per radiologist, IMPRESSION: #. Moderate prominence of the common bile duct increased over the 2018 exam. No visualized calcified stone or obstructing lesion. #. Cholelithiasis without additional CT abnormality of the gallbladder. #. No evidence for appendicitis. Small appendicolith noted. #. Colonic diverticulosis without findings of acute diverticulitis. #. Negative for obstructive uropathy. ED physician has reviewed this radiology report. - Ultrasound Gallbladder US Ultrasound Interpretation Completed By: Radiologist Summary of Ultrasound Findings: Gallbladder US reveals, per radiologist, IMPRESSION: # Hepatosteatosis. # Intra and extrahepatic biliary dilatation and mild pancreatic duct dilatation. Heterogeneous echogenicity biliary sludge or small stones visualized at the distal common bile duct. #. Cholelithiasis without additional abnormality of the gallbladder. Negative for sonographic Hansen's sign. ED physician has reviewed this radiology report. - EKG 13:33 Cardiac Rate: NL - 77 bpm EKG Rhythm: Sinus Rhythm EKG Comparison: No Significant Change Summary of EKG Findings: An EKG at 13:33 reveals normal sinus rhythm 77 bpm, PACs, old inferior infarction. No significant change from 04/09/18 Complex Multi-Symp Course/Dx Course Of Treatment: This patient is a 78 year old F presenting to [facility] accompanied by daughter with a chief complaint of lightheadedness since three days ago. Physical exam findings are nml except mucous membrane is dry. Blood work obtained. WBC is 11.3, Plt Count is 141, INR is 1.60, Potassium is 3.4, Creatinine is 1.30, Glucose is 121, Total Bilirubin is 1.10, AST is 273, ALT is 220, Alkaline Phosphatase is 137, B-Natriuretic Peptide is 196. An EKG at 13: 33 reveals normal sinus rhythm 77 bpm, PACs, old inferior infarction. No significant change from 04/09/18. CXR reveals, per radiologist, IMPRESSION: Stigmata of obstructive lung disease. No acute pulmonary or cardiac process evident. Abdomen/Pelvis CT reveals, per radiologist, IMPRESSION: #. Moderate prominence of the common bile duct increased over the 2018 exam. No visualized calcified stone or obstructing lesion. #. Cholelithiasis without additional CT abnormality of the gallbladder. #. No evidence for appendicitis. Small appendicolith noted. #. Colonic diverticulosis without findings of acute diverticulitis. #. Negative for obstructive uropathy. Gallbladder US reveals, per radiologist, IMPRESSION: # Hepatosteatosis. # Intra and extrahepatic biliary dilatation and mild pancreatic duct dilatation. Heterogeneous echogenicity biliary sludge or small stones visualized at the distal common bile duct. #. Cholelithiasis without additional abnormality of the gallbladder. Negative for sonographic Hansen's sign. ED physician has reviewed this radiology report. In the ED course the patient was given Zofran, Acetaminophen , Piperacill and fluids. Case discussed with hospitalist. I discussed results with patient. The patient agrees with this plan - Diagnoses Provider Diagnoses: Choledocholithiasis, Fever - Physician Notifications Discussed Care Of Patient With: Rowdy Barraza Time Discussed With Above Provider: 15:43 Instructed by Provider To: Other - Discussed case with Dr. Barraza to see whether she would need ERCP. 15:44 - Discussed case with Dr. Nicholson, who accepts pt for admission. - Critical Care Time Critical Care Time: 30-74 min Discharge - Sign-Out/Discharge Documenting (check all that apply): Patient Departure - Admit Patient Received Moderate/Deep Sedation with Procedure: No - Discharge Plan Condition: Stable Disposition: ADMITTED TO [facility] - Billing Disposition and Condition Condition: STABLE Disposition: Admitted to [facility] - Attestation Statements Document Initiated by Jovany: Yes Documenting Scribe: Julia Dallas Provider For Whom Jovany is Documenting (Include Credential): Dr. Tony Fu MD Scribe Attestation: Julia Ely scribed for Dr. Tony Fu MD on 12/14/18 at 1204. Scribe Documentation Reviewed: Yes Provider Attestation: The documentation as recorded by the Julia urbano accurately reflects the service I personally performed and the decisions made by me, Dr. Tony Fu MD Status of Scribe Document: Viewed
[2018-12-13] MEDS ORDERED: Ondansetron INJ* 2 MG/ML VIAL IV ONE (14:00)
[2018-12-13] MEDS ORDERED: NS 0.9% 1000 ML** 1,000 ML IV ONE (14:00)
[2018-12-13 14:08] LABS: ABS Lymphocytes 0.6 10^3/ul (1.0-4.8); ABS Monocytes 0.5 10^3/ul (0-0.8); ABS Neutrophils 10.2 10^3/ul (1.5-7.7); Hematocrit 37 % (35-47); Hemoglobin 12.3 g/dL (12.0-16.0); Lymphocyte % 5.3 %; Mean Corpuscular HGB Conc 33 g/dL (31-36); Mean Corpuscular Hemoglobin 28 pg (27-31); Mean Corpuscular Volume 85 fL (80-97); Mean Platelet Volume 10.2 fL (7.4-10.4); Platelet Count 141 10^3/uL (150-450); Red Blood Count 4.39 10^6 /uL (3.70-4.87); Red Cell Distribution Width 15 % (10-15); White Blood Count 11.3 10^3/uL (3.5-10.8)
[2018-12-13 14:22] LABS: Activated Partial Thrombo Time 33.6 seconds (26.0-38.0); INR 1.6 (0.82-1.09)
[2018-12-13 14:24] LABS: Albumin 3.8 g/dL (3.2-5.2); Albumin/Globulin Ratio 1.2 (1-3); BUN/Creatinine Ratio 13.1 (8-20); Calcium 8.7 mg/dL (8.6-10.3); EGFR African American 48.1 (>60); EGFR Non-African American 39.7 (>60); Globulin 3.1 g/dL (2-4); Potassium 3.4 mmol/L (3.5-5.0); Total Bilirubin 1.1 mg/dL (0.2-1.0); Total Protein 6.9 g/dL (6.4-8.9)
[2018-12-13 14:26] LABS: Troponin I 0.03 ng/mL (<0.04)
[2018-12-13] MEDS ORDERED: Acetaminophen TAB* 325 MG PO ONE (15:38)
[2018-12-13] MEDS ORDERED: Piperacillin/Tazobac ADVAN(*) 3.375 GM in NS 0.9% 100 ML* 100 ML IVPB ONE (15:38)
--- NOTE | 2018-12-13 16:31 | ADMNOTE ---
Subjective Date of Service: 12/13/18 Interval History: ADMISSION HISTORY AND PHYSICAL EXAM: Allergies Allergy/AdvReac Type Severity Reaction Status Date / Time azithromycin Allergy Hives Verified 04/09/18 18:46 Iodinated Contrast- Oral and Allergy Hives Verified 04/11/18 08:51 IV Dye iodine Allergy Hives Verified 04/09/18 18:46 levofloxacin Allergy Rash Verified 04/09/18 18:[address] Allergy Hives Uncoded 02/04/14 08:51 Home Medications Medication Instructions Recorded Confirmed Type Calcium Carbonate-Vitamin D 600 mg PO DAILY 02/12/13 04/09/18 History [Calcium 500 + D 500-125 mg-Unit] Montelukast Sodium [Singulair] 10 mg PO DAILY 02/12/13 04/09/18 History Multiple Vitamins W/ Minerals 1 cap PO DAILY 02/12/13 04/09/18 History [Multi Complete] Acetaminophen TAB* [Tylenol TAB*] 650 mg PO Q4H PRN 04/26/13 04/09/18 History Fluticasone Propionate [Flonase 50 mcg NA DAILY 02/16/15 04/09/18 History Allergy Relief] Fluticasone-Salmeterol 250-50* 1 puff INH BID 02/16/15 04/09/18 History [Advair Diskus 250-50*] [place]-3 Fatty Acids/Fish Oil 1 cap PO DAILY 02/16/15 04/09/18 History [[place] 3 1,000 mg Softgel] predniSONE TAB* [Deltasone TAB*] 5 mg PO DAILY 02/16/15 04/09/18 History Amoxicillin/Clavulanate TAB* 875 mg PO BID 9 Days #18 tab 04/14/18 Rx [Augmentin TAB 875*] Clotrimazole 1% CREAM* 1 applic TOPICAL BID 7 Days #1 tube 04/14/18 Rx [Clotrimazole 1%*] amLODIPine TAB* [Norvasc 5 mg TAB*] 5 mg PO DAILY 30 Days #30 tab 04/14/18 Rx HPI: The patient was in her usual state of health until 3 days ago. She developed dry heaves and shaking chills. She did not take her temperature. She did not take any of her meds today. She last took prednisone yesterday. Family History: Findings - Father age 58 of [place], mother lived to age 97. Social History: Findings - Lives with her daughter Daniel Rucker who is her SDM. Has a second daughter also, who also came to the ED. Past Medical History: Findings - HTN, asthma, allergic rhinitis, tonsillectomy, cataract surgery, skin cancer removal Review of Systems - Measurements Intake and Output: Intake and Output Last 24 Hours 12/11/18 12/12/18 12/13/18 12/14/18 06:59 06:59 06:59 06:59 Weight 176 lb - Review of Systems Constitutional Symptoms: Negative: Weight Gain, Weight Loss, Weakness, Fatigue, Fever, Night Sweats, Unexplained Falls, Other Dermatology: Positive: Normal HEENT: Positive: Normal Eyes: Positive: Normal Thyroid: Positive: Normal Pulmonary: Positive: Asthma, Exercise Intolerance Cardiology: Positive: Normal Gastroenterology: Positive: Nausea, Vomiting, Anorexia Genital - Urinary: Positive: Normal Musculoskeletal: Positive: Joint Pain Endocrinology: Positive: Normal Hematologic/Lymphatic: Negative: Anemia, Easy Bruising, Hx Leukemia, Hx Lymphoma, Use of Anticoagulant, Use of Antiplatelet Drugs, Other Neurology: Positive: Normal Psychiatry: Positive: Normal Allergic/Immunologic: Negative: Hx Anaphylaxis, Hx Angioedema, Hx Environmental, Hx Seasonal, Asthma, Hx HIV, Immunocompromise, Swollen Glands LymphNodes, Other Objective Vital Signs - 8 hr 12/13/18 12/13/18 12/13/18 12:34 13:43 13:44 Temperature 98.4 F Pulse Rate 94 79 80 Respiratory 14 15 19 Rate Blood Pressure 123/85 151/79 (mmHg) O2 Sat by Pulse 92 90 92 Oximetry 12/13/18 12/13/18 12/13/18 14:00 14:14 14:44 Temperature Pulse Rate 83 79 74 Respiratory 13 17 14 Rate Blood Pressure 135/67 128/72 (mmHg) O2 Sat by Pulse 91 93 96 Oximetry 12/13/18 12/13/18 12/13/18 15:30 15:36 16:00 Temperature 102.4 F Pulse Rate 84 98 Respiratory 20 31 Rate Blood Pressure (mmHg) O2 Sat by Pulse 94 93 Oximetry Oxygen Devices in Use Now: Nasal Cannula Appearance: Alert, partly up on ED stretcher. Looks fatigued but otherwise comfortable. Eyes: No Scleral Icterus Neck: NL Appearance and Movements; NL JVP, No Thyroid Enlargement, Masses Respiratory: Symmetrical Chest Expansion and Respiratory Effort, Clear to Auscultation, Clear to Percussion Cardiovascular: NL Sounds; No Murmurs; No JVD, RRR, No Edema, - Abdominal: NL Sounds; No Tenderness; No Distention, No Hepatosplenomegaly, - Extremities: No Edema, No Clubbing, Cyanosis, - Skin: No Nodules or Sclerosis, - - 6 cm lipoma overlying L clavicle. Many seborrheic keratoses entire chest and back. 1 x 2 cm red raised lesion L upper chest present for years. Neurological: Alert and Oriented x 3, NL Sensation Result Diagrams: 12/13/18 13:59 12/13/18 13:59 Assess/Plan/Problems-Billing Assessment: - Patient Problems (1) Cholangitis Current Visit: Yes Status: Acute Code(s): K83.09 - OTHER CHOLANGITIS SNOMED Code(s): 63223203 Comment: Cholelithiasis but no other CT abnormalities of GB. CBD mildly dilated. Abnl LFT's, shaking chills and leukocytosis. Pip/nilton started in ED. 2 blood C&S sent. Continue pip/nilton, IV fluids. CMP 12/14. (2) Asthma Current Visit: No Status: Chronic Code(s): J45.909 - UNSPECIFIED ASTHMA, UNCOMPLICATED SNOMED Code(s): 785628177 Comment: Continue fluticasone/salmeterol - Has been on 5mg prednisone for about 20yrs, will give IV hydrocortisone while acutely ill. (3) Thrombocytopenia Current Visit: No Status: Acute Code(s): D69.6 - THROMBOCYTOPENIA, UNSPECIFIED SNOMED Code(s): 145332831 Comment: Platelets 147 on 12/13 Pt has had plts 83-114 on previous admissions. CBC 12/14. (4) Elevated INR Current Visit: Yes Status: Acute Code(s): R79.1 - ABNORMAL COAGULATION PROFILE SNOMED Code(s): 354662105 Comment: Pt denies use of warfarin or possession of warfarin for years. Vit K 10m subcut ordered, repeat INR 12/14.
[2018-12-13] MEDS ORDERED: Phytonadione SUBCUT/IM Adult* 10 MG/ML AMP (IM or SQ not preferred route) SUBCUT ONE (16:35)
[2018-12-13] MEDS ORDERED: Acetaminophen TAB* 325 MG PO PRN (16:37)
[2018-12-13] MEDS ORDERED: Enoxaparin(*) 40 MG/0.4 ML SYR SUBCUT SCH (17:00)
[2018-12-13] MEDS: D5W NS 0.9% 20Meq KCL 1000 ML* 1,000 ML IV SCH (18:06)
[2018-12-13] MEDS: Mometasone/Formoter 200/5 MDI INH SCH (19:04)
[2018-12-13] MEDS: Piperacillin/Tazobac ADVAN(*) 3.375 GM in NS 0.9% 100 ML* 100 ML IVPB SCH (20:21)
[2018-12-13] MEDS: Montelukast Sodium TAB* 10 MG PO SCH (20:23)
[2018-12-13] MEDS: Hydrocortisone INJ* 100 MG VIAL IV SCH (20:42)
--- NOTE | 2018-12-13 21:07 | CONS ---
GASTROENTEROLOGY CONSULT: DATE OF CONSULT: 12/13/18 CONSULTING PHYSICIAN:. Tony Fu, ER; Frederick Case, Hospitalist; David Ramirez, Family Medicine. REASON FOR CONSULTATION: Fever, chills, and elevated LFTs with a dilated bile duct, probably having filling defects. 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 She denies any pain. Her daughter who lives with her clarified the history tremendously (Daniel Rucker , [phone]) and was the one who insisted she come to the hospital when she had refused the evening before. She says that she was okay on , 12/10/18, but then felt kind of tired in the afternoon and lay down. The same thing occurred on 12/11/18, and then after a similar sequence on Friday, she began feeling cold in the afternoon and took to bed, covered with blankets. She refused to come to the emergency room. There was no vomiting or any focal pain. There was no diarrhea. Today, the same thing occurred and her family insisted she come in. She states similar symptoms last year resulted in extensive testing especially regarding her gallbladder. Gallstones were seen, but in the common duct. A HIDA scan was negative. Cholecystectomy was deferred. Blood cultures were positive for E. coli. She also had an infection with signs of sepsis in February 2015, the blood cultures were negative. PAST MEDICAL HISTORY: 1. Substantial obesity. 2. Asthma - placed on prednisone 30 or more years ago by Dr. Carlos Soto, a plate cleaner. When he left [facility], she had her maintenance prednisone continued at her primary office. 3. History of pulmonary embolism - her daughter recalls an injury to the right leg and then her plate cleaner "discovering it by accident." She took warfarin at least up through 2013. No one remembers the conversation about stopping warfarin. 4. History of nasal polyps - surgery by Dr. Wyatt recurrently. 5. Back pain - evaluated by Dr. Ramirez. 6. Basal cell carcinoma of the nose. 7. Transient ischemic attack - listed by Dr. Campos in 2014. MEDICATIONS: 1. Prednisone 5. 2. Singulair 10. 3. Nasonex. 4. Hydrochlorothiazide 12.5. 5. Prednisone 5. 6. Xopenex inhaler. SOCIAL HISTORY: She is retired from [employer]. She is . Her daughter Daniel lives with her. REVIEW OF SYSTEMS: No history of hemoptysis, TB, seizure, syncope, ME, cardiac abnormalities, hepatitis, jaundice, gross hematuria. She believes she had an upper endoscopy 25 or more years ago, but cannot recall why. She does not believe she has had a colonoscopy. She has had some mild thrombocytopenia through the years. PHYSICAL EXAM: She is a a warm, febrile woman, 102.1, in no distress. She actually looks pretty good. HEENT exam shows no icterus. She has no adenopathy. Breath sounds are symmetric and equal. Heart sounds are regular and normal. The abdomen is rotund, symmetric with normal bowel sounds and is soft and nontender. There is really a quite benign abdomen. Extremities show morbid obesity. Pulses are intact. Neurologic is nonfocal with normal strength in all 4 extremities. DIAGNOSTIC STUDIES/LAB DATA: Imaging - CT scan shows a dilated CBD and question of filling defects in the distal ducts. Ultrasound confirms the above. Labs - LFT is slightly off. IMPRESSION: Probable biliary sepsis and she has been cultured and antibiotics started. Her INR is slightly off even though she does not take any warfarin. This is a little bit curious as the cholangitis is early. She does not have a chronic cholestatic state clinically even though her CBD has been dilated for some tiem. She, however, does apparently have a predisposition to pulmonary emboli and Lovenox should be given until such time as an ERCP is firmly scheduled [id number]/[facility] #: [id number] [facility]
[2018-12-14] MEDS: D5W NS 0.9% 20Meq KCL 1000 ML* 1,000 ML IV SCH ×3 (02:11→20:06)
[2018-12-14] MEDS: Hydrocortisone INJ* 100 MG VIAL IV SCH ×3 (04:16→20:03)
[2018-12-14] MEDS: Piperacillin/Tazobac ADVAN(*) 3.375 GM in NS 0.9% 100 ML* 100 ML IVPB SCH ×3 (04:17→20:04)
[2018-12-14 06:10] LABS: ABS Lymphocytes 0.4 10^3/ul (1.0-4.8); ABS Monocytes 0.2 10^3/ul (0-0.8); ABS Neutrophils 7.7 10^3/ul (1.5-7.7); Hematocrit 33 % (35-47); Hemoglobin 11.3 g/dL (12.0-16.0); Lymphocyte % 4.4 %; Mean Corpuscular HGB Conc 34 g/dL (31-36); Mean Corpuscular Hemoglobin 29 pg (27-31); Mean Corpuscular Volume 85 fL (80-97); Mean Platelet Volume 10.6 fL (7.4-10.4); Platelet Count 104 10^3/uL (150-450); Red Blood Count 3.91 10^6 /uL (3.70-4.87); Red Cell Distribution Width 15 % (10-15); White Blood Count 8.2 10^3/uL (3.5-10.8)
[2018-12-14 06:16] LABS: INR 1.55 (0.82-1.09)
[2018-12-14 06:28] LABS: Albumin 3.2 g/dL (3.2-5.2); Albumin/Globulin Ratio 1.3 (1-3); BUN/Creatinine Ratio 12.8 (8-20); EGFR African American 69.9 (>60); EGFR Non-African American 57.7 (>60); Globulin 2.5 g/dL (2-4); Potassium 3.7 mmol/L (3.5-5.0); Total Bilirubin 0.5 mg/dL (0.2-1.0); Total Protein 5.7 g/dL (6.4-8.9)
[2018-12-14] MEDS: Mometasone/Formoter 200/5 MDI INH SCH ×2 (08:36→19:46)
--- NOTE | 2018-12-14 10:19 | PN ---
Subjective Date of Service: 12/14/18 Interval History: Feeling better, no nausea, chills, or sweats. No new c/o. Family History: Findings - Father age 58 of [place], mother lived to age 97. Social History: Findings - Lives with her daughter Daniel Ruckre who is her SDM. Has a second daughter also, who also came to the ED. Past Medical History: Findings - HTN, asthma, allergic rhinitis, tonsillectomy, cataract surgery, skin cancer removal Objective Active Medications: Acetaminophen (Tylenol Tab*) 650 mg PO Q4H PRN PRN Reason: TEMPERATURE > 101.5 Enoxaparin Sodium (Lovenox(*)) 40 mg SUBCUT Q24H [facility] Hydrocortisone Sodium Succinate (Solu-Cortef*) 50 mg IV Q8H [facility] Piperacillin Sod/Tazobactam (Sod 3.375 gm/ Sodium Chloride) 100 mls @ 25 mls/ hr IVPB Q8H [facility] Last Admin: 12/14/18 04:17 Dose: 25 mls/hr Potassium Chloride/Dextrose (D5w Ns 0.9% 20meq Kcl 1000 Ml*) 1,000 mls @ 100 mls/hr IV PER RATE [facility] Mometasone Furoate/Formoterol Fumar (Dulera 200/5 Mdi*) 2 puff INH BID [facility] Last Admin: 12/14/18 08:36 Dose: 2 puff Montelukast Sodium (Singulair Tab*) 10 mg PO DAILY@2100 [facility] Last Admin: 12/13/18 20:23 Dose: 10 mg Vital Signs - 8 hr 12/14/18 12/14/18 12/14/18 03:40 07:34 08:00 Temperature 98.4 F 97.4 F Pulse Rate 51 56 Respiratory 18 16 18 Rate Blood Pressure 114/58 110/63 (mmHg) O2 Sat by Pulse 93 94 Oximetry Oxygen Devices in Use Now: None Appearance: Alert, partly up in bed. In good spirits. Looks comfortable. Abdominal: NL Sounds; No Tenderness; No Distention, No Hepatosplenomegaly, - Extremities: No Edema, No Clubbing, Cyanosis, - Skin: No Nodules or Sclerosis, - - both lower legs show patchy hyperpigmentation Neurological: Alert and Oriented x 3, NL Sensation Result Diagrams: 12/14/18 05:48 12/14/18 05:48 Microbiology and Other Data: Microbiology 12/13/18 13:26 Aerobic Blood Culture - Preliminary Blood Venous Anaerobic Blood Culture - Preliminary 12/13/18 13:59 Anaerobic Blood Culture - Preliminary Blood Venous Assess/Plan/Problems-Billing Assessment: - Patient Problems (1) Cholangitis Current Visit: Yes Status: Acute Code(s): K83.09 - OTHER CHOLANGITIS SNOMED Code(s): 55352864 Comment: Cholelithiasis but no other CT abnormalities of GB. CBD mildly dilated. Abnl LFT's, shaking chills and leukocytosis. Pip/nilton started in ED. 2 blood C&S sent. Continue pip/nilton, IV fluids. CMP shows all LFT's improved 12/14. WBC down to 8.2. ? ERCP, cholecystectomy. (2) Asthma Current Visit: No Status: Chronic Code(s): J45.909 - UNSPECIFIED ASTHMA, UNCOMPLICATED SNOMED Code(s): 472294979 Comment: Continue fluticasone/salmeterol - Has been on 5mg prednisone for about 20yrs, will give IV hydrocortisone while acutely ill. (3) Thrombocytopenia Current Visit: No Status: Acute Code(s): D69.6 - THROMBOCYTOPENIA, UNSPECIFIED SNOMED Code(s): 091586602 Comment: Platelets 147 on 12/13, 104 on 12/14 Pt has had plts 83-114 on previous admissions. CBC 12/15. (4) Elevated INR Current Visit: Yes Status: Acute Code(s): R79.1 - ABNORMAL COAGULATION PROFILE SNOMED Code(s): 775390589 Comment: Pt denies use of warfarin or possession of warfarin for years. Vit K 10m subcut ordered, INR fell to 1.55 8 hrs later. Repeat INR 12/15.
[2018-12-14] MEDS: Enoxaparin(*) 40 MG/0.4 ML SYR SUBCUT SCH (10:22)
[2018-12-14] MEDS: Montelukast Sodium TAB* 10 MG PO SCH (20:02)
[2018-12-15] MEDS: Hydrocortisone INJ* 100 MG VIAL IV SCH ×3 (04:04→20:18)
[2018-12-15] MEDS: Piperacillin/Tazobac ADVAN(*) 3.375 GM in NS 0.9% 100 ML* 100 ML IVPB SCH ×3 (04:05→20:23)
[2018-12-15] MEDS: D5W NS 0.9% 20Meq KCL 1000 ML* 1,000 ML IV SCH (05:58)
[2018-12-15 06:00] LABS: ABS Lymphocytes 0.6 10^3/ul (1.0-4.8); ABS Monocytes 0.4 10^3/ul (0-0.8); ABS Neutrophils 6.7 10^3/ul (1.5-7.7); Hematocrit 33 % (35-47); Hemoglobin 10.6 g/dL (12.0-16.0); Lymphocyte % 7.3 %; Mean Corpuscular HGB Conc 33 g/dL (31-36); Mean Corpuscular Hemoglobin 28 pg (27-31); Mean Corpuscular Volume 86 fL (80-97); Mean Platelet Volume 10.2 fL (7.4-10.4); Platelet Count 113 10^3/uL (150-450); Red Cell Distribution Width 15 % (10-15); White Blood Count 7.6 10^3/uL (3.5-10.8)
[2018-12-15 06:05] LABS: INR 1.34 (0.82-1.09)
[2018-12-15 06:24] LABS: Albumin 3.1 g/dL (3.2-5.2); Albumin/Globulin Ratio 1.2 (1-3); BUN/Creatinine Ratio 10.7 (8-20); Calcium 8.1 mg/dL (8.6-10.3); EGFR African American 90.7 (>60); EGFR Non-African American 74.9 (>60); Globulin 2.6 g/dL (2-4); Potassium 3.4 mmol/L (3.5-5.0); Total Bilirubin 0.3 mg/dL (0.2-1.0); Total Protein 5.7 g/dL (6.4-8.9)
[2018-12-15] MEDS: Mometasone/Formoter 200/5 MDI INH SCH ×3 (07:38→19:04)
[2018-12-15] MEDS: Enoxaparin(*) 40 MG/0.4 ML SYR SUBCUT SCH (10:11)
[2018-12-15] MEDS ORDERED: Famotidine IV* 10 MG/ML 2 ML (20 mg) IV ONE (13:06)
[2018-12-15] MEDS ORDERED: Buffered Lidocaine 1% SYRIN* 1 ML/SYRINGE INTRADERM ONE (13:06)
[2018-12-15] MEDS ORDERED: Phytonadione Oral Solution* 5 MG/25 ML UDC PO ONE (14:39)
[2018-12-15] MEDS ORDERED: Potassium Chloride* LIQUID 20 MEQ/15 ML UDC PO ONE (14:46)
--- NOTE | 2018-12-15 14:46 | PN ---
Subjective Date of Service: 12/15/18 Interval History: Pt is feeling well. She states she is ready to get up and get going. She denies any abdominal pain. No fever/chills. Objective Active Medications: Acetaminophen (Tylenol Tab*) 650 mg PO Q4H PRN PRN Reason: TEMPERATURE > 101.5 Hydrocortisone Sodium Succinate (Solu-Cortef*) 50 mg IV Q8H [facility] Last Admin: 12/15/18 12:55 Dose: 50 mg Piperacillin Sod/Tazobactam (Sod 3.375 gm/ Sodium Chloride) 100 mls @ 25 mls/ hr IVPB Q8H [facility] Last Admin: 12/15/18 12:29 Dose: 25 mls/hr Lactated Ringer's (Lactated Ringers 1000 Ml Bag*) 1,000 mls @ 125 mls/hr IV PER RATE [facility] Mometasone Furoate/Formoterol Fumar (Dulera 200/5 Mdi*) 2 puff INH BID [facility] Last Admin: 12/15/18 07:38 Dose: 2 puff Montelukast Sodium (Singulair Tab*) 10 mg PO DAILY@2100 [facility] Last Admin: 12/14/18 20:02 Dose: 10 mg Phytonadione (Vitamin K Oral Solution*) 5 mg PO ONCE ONE Stop: 12/15/18 14:40 Vital Signs - 8 hr 12/15/18 12/15/18 12/15/18 07:52 08:00 11:47 Temperature 97.9 F 98.2 F Pulse Rate 58 62 Respiratory 16 16 16 Rate Blood Pressure 139/66 156/62 (mmHg) O2 Sat by Pulse 94 96 Oximetry Oxygen Devices in Use Now: None Appearance: Elderly female sitting up in bed, NAD Eyes: No Scleral Icterus Ears/Nose/Mouth/Throat: Mucous Membranes Moist Respiratory: Symmetrical Chest Expansion and Respiratory Effort, Clear to Auscultation Cardiovascular: NL Sounds; No Murmurs; No JVD, RRR, No Edema Abdominal: NL Sounds; No Tenderness; No Distention Extremities: No Clubbing, Cyanosis Skin: No Nodules or Sclerosis Neurological: Alert and Oriented x 3 Result Diagrams: 12/15/18 05:54 12/15/18 05:53 Microbiology and Other Data: Microbiology 12/13/18 13:26 Aerobic Blood Culture - Preliminary Blood Venous Anaerobic Blood Culture - Preliminary 12/13/18 13:59 Anaerobic Blood Culture - Preliminary Blood Venous Assess/Plan/Problems-Billing Ms Thibodeaux is a 78 yo F who presented to the ER with c/o sudden onset of chills/ rigors and dry heaves and was admitted for treatment of cholangitis. - Patient Problems (1) Cholangitis Current Visit: Yes Status: Acute Code(s): K83.09 - OTHER CHOLANGITIS SNOMED Code(s): 80512397 Comment: Pt has cholelithiasis but no other CT abnormalities of the gallbladder. CBD is mildly dilated. Continue zosyn for presumed cholangitis. She was to have ERCP today but received lovenox. Plan for ERCP tomorrow. (2) Bacteremia due to Gram-negative bacteria Current Visit: Yes Status: Acute Code(s): R78.81 - BACTEREMIA SNOMED Code( s): 503683277999 Comment: Pt had episode of e coli bacteremia in 04/2018. ? biliary source at that time. Will continue zosyn- ultimately will need 14 days of therapy. No need to repeat BC as pt has defervesed. Probably should have surgical eval for cholecystectomy as possible source of recurrent bacteremia. (3) Elevated INR Current Visit: Yes Status: Acute Code(s): R79.1 - ABNORMAL COAGULATION PROFILE SNOMED Code(s): 773487604 Comment: ? secondary to low vitamin K intake. Will give vitamin K 5mg po tonight. Repeat INR tomorrow. (4) DVT prophylaxis Current Visit: Yes Status: Acute Code(s): EYB2286 - SNOMED Code(s): 294555798 Comment: Lovenox-stopped for ERCP tomorrow. (5) Full code status Current Visit: Yes Status: Acute Code(s): Z78.9 - OTHER SPECIFIED HEALTH STATUS SNOMED Code(s): 856932951
[2018-12-15] MEDS: Montelukast Sodium TAB* 10 MG PO SCH (20:22)
[2018-12-16] MEDS: Hydrocortisone INJ* 100 MG VIAL IV SCH (03:52)
[2018-12-16] MEDS: Piperacillin/Tazobac ADVAN(*) 3.375 GM in NS 0.9% 100 ML* 100 ML IVPB SCH ×4 (03:57→23:45)
[2018-12-16] MEDS: Mometasone/Formoter 200/5 MDI INH SCH ×2 (08:05→19:23)
--- NOTE | 2018-12-16 11:06 | PN ---
Subjective Date of Service: 12/16/18 Interval History: Pt is feeling well. She denies any pain or SOB. She is just waiting for her ERCP this afternoon. Objective Active Medications: Acetaminophen (Tylenol Tab*) 650 mg PO Q4H PRN PRN Reason: TEMPERATURE > 101.5 Piperacillin Sod/Tazobactam (Sod 3.375 gm/ Sodium Chloride) 100 mls @ 25 mls/ hr IVPB Q8H [facility] Last Admin: 12/16/18 03:57 Dose: 25 mls/hr Lactated Ringer's (Lactated Ringers 1000 Ml Bag*) 1,000 mls @ 125 mls/hr IV PER RATE [facility] Mometasone Furoate/Formoterol Fumar (Dulera 200/5 Mdi*) 2 puff INH BID [facility] Last Admin: 12/16/18 08:05 Dose: 2 puff Montelukast Sodium (Singulair Tab*) 10 mg PO DAILY@2100 [facility] Last Admin: 12/15/18 20:22 Dose: 10 mg Prednisone (Deltasone Tab*) 5 mg PO DAILY [facility] Vital Signs - 8 hr 12/16/18 12/16/18 12/16/18 03:35 07:23 08:00 Temperature 98.7 F 98.2 F Pulse Rate 60 57 Respiratory 17 12 14 Rate Blood Pressure 172/80 151/72 (mmHg) O2 Sat by Pulse 96 97 Oximetry 12/16/18 08:06 Temperature Pulse Rate 60 Respiratory 14 Rate Blood Pressure (mmHg) O2 Sat by Pulse 97 Oximetry Oxygen Devices in Use Now: None Appearance: Eldelry female sitting up on the edge of the bed, NAD Eyes: No Scleral Icterus Ears/Nose/Mouth/Throat: Mucous Membranes Moist Respiratory: Symmetrical Chest Expansion and Respiratory Effort, Clear to Auscultation Cardiovascular: NL Sounds; No Murmurs; No JVD, RRR, No Edema Abdominal: NL Sounds; No Tenderness; No Distention Extremities: No Clubbing, Cyanosis Skin: No Nodules or Sclerosis Neurological: Alert and Oriented x 3 Result Diagrams: 12/15/18 05:54 12/15/18 05:53 Microbiology and Other Data: Microbiology 12/13/18 13:26 Aerobic Blood Culture - Preliminary Blood Venous Anaerobic Blood Culture - Preliminary 12/13/18 13:59 Anaerobic Blood Culture - Preliminary Blood Venous Assess/Plan/Problems-Billing Ms Thibodeaux is a 78 yo F who presented to the ER with c/o sudden onset of chills/ rigors and dry heaves and was admitted for treatment of cholangitis. - Patient Problems (1) Cholangitis Current Visit: Yes Status: Acute Code(s): K83.09 - OTHER CHOLANGITIS SNOMED Code(s): 47222475 Comment: Pt has cholelithiasis but no other CT abnormalities of the gallbladder. CBD is mildly dilated. Continue zosyn for presumed cholangitis. ERCP to be done today. The patient is medically optimized to have the procedure done. Repeat INR pending for today as is CBC. (2) Bacteremia due to Gram-negative bacteria Current Visit: Yes Status: Acute Code(s): R78.81 - BACTEREMIA SNOMED Code( s): 774325919299 Comment: Pt had episode of e coli bacteremia in 04/2018. ? biliary vs urinary source at that time. Will continue zosyn- ultimately will need 14 days of therapy. Probably should have repeat surgical eval for cholecystectomy as possible source of recurrent bacteremia. I do not believe this needs to be done during this admission but in the near future. (3) Elevated INR Current Visit: Yes Status: Acute Code(s): R79.1 - ABNORMAL COAGULATION PROFILE SNOMED Code(s): 308298720 Comment: ? secondary to low vitamin K intake. Repeat INR pending. (4) DVT prophylaxis Current Visit: Yes Status: Acute Code(s): PFX3194 - SNOMED Code(s): 600469297 Comment: ambulation (5) Full code status Current Visit: Yes Status: Acute Code(s): Z78.9 - OTHER SPECIFIED HEALTH STATUS SNOMED Code(s): 542954289
[2018-12-16 11:42] LABS: Hematocrit 36 % (35-47); Hemoglobin 11.9 g/dL (12.0-16.0); Mean Corpuscular HGB Conc 33 g/dL (31-36); Mean Corpuscular Hemoglobin 29 pg (27-31); Mean Corpuscular Volume 85 fL (80-97); Mean Platelet Volume 10.6 fL (7.4-10.4); Platelet Count 150 10^3/uL (150-450); Red Blood Count 4.19 10^6 /uL (3.70-4.87); Red Cell Distribution Width 15 % (10-15); White Blood Count 7.2 10^3/uL (3.5-10.8)
[2018-12-16 11:49] LABS: INR 1.19 (0.82-1.09)
[2018-12-16 12:04] LABS: BUN/Creatinine Ratio 13.8 (8-20); Calcium 8.8 mg/dL (8.6-10.3); EGFR African American 76.4 (>60); EGFR Non-African American 63.1 (>60)
[2018-12-16] MEDS: Lactated Ringers 1000 ML Bag* 1,000 ML IV SCH ×2 (15:22→22:34)
[2018-12-16] MEDS ORDERED: Famotidine IV* 10 MG/ML 2 ML (20 mg) IV ONE (16:00)
[2018-12-16] MEDS ORDERED: Buffered Lidocaine 1% SYRIN* 1 ML/SYRINGE INTRADERM ONE (16:00)
[2018-12-16] MEDS ORDERED: diPHENhydraMINE IV* 50 MG/ML 1 ml VIAL (BENADRYL) ONE (16:31)
[2018-12-16] MEDS ORDERED: Indomethacin SUPP(NF) 50 MG SUP PR ONE (16:31)
[2018-12-16] MEDS ORDERED: fentaNYL* 50 MCG/ML 2 ML VIAL (100 MCG VIAL) ONE (16:41)
[2018-12-16] MEDS ORDERED: Potassium Chlor TAB* 20 MEQ TAB.ER PO ONE (18:24)
[2018-12-16] MEDS ORDERED: hydrALAZINE IV* 20 MG/ML VIAL ONE (19:02)
[2018-12-16] MEDS: Montelukast Sodium TAB* 10 MG PO SCH (22:41)
--- NOTE | 2018-12-16 23:48 | PRO ---
DATE: 12/16/18 - ROOM #[id number] REFERRING PHYSICIAN: David Ramirez MD * PROCEDURE: ERCP with cannulation of common duct through roof of papilla and then sphincterotomy, distal common duct brushing, common duct stenting with 10-[place] 5 cm double pig tail stent, biopsy of papilla from 2 orientations. INDICATION: This 78-year-old woman had an episode of fever and associated liver function abnormalities. Imaging showed a dilated common duct larger than on previous CT and ultrasound in April 2018. There were stones in the gallbladder and suspected sludge in the distal common duct. She was placed on Zosyn and liver function tests were improving and indeed the bilirubin and alkaline phosphatase were normal. Informed consent was obtained in several conversations assisted by a diagram and all questions were answered. The patient was aware that a common duct stent was a possibility. ENDOSCOPIST: Dr. Barraza. ANESTHESIOLOGIST: Dr. Khan. FINDINGS: She is a 78-year-old woman, moderately overweight, in no overt distress and afebrile over the last 48 hours, positioned in a semiprone position. She is still receiving Zosyn. Preprocedure indomethacin suppository was given. She was also given IV Benadryl 50 mg because of a history of a contrast reaction. ERCP: Esophagus - 20% to 30% views were normal. There appeared to be a small to medium hiatal hernia. Stomach - approximately 50% views in aggregate were normal. The pylorus was wide and symmetric. Duodenum - normal mucosa in general . 2nd portion swollen fold in the area that could represent the minor papilla. The major papilla had a very flat, widened face. There was a long prominent intramural bile duct. Positioning below the papilla, a sphincterotome inflected approximately 45 degrees,appeared to have an orientation towards the high 11 o'clock, good for cannulation. The guidewire, however, entered the pancreatic duct. This occurred a second time despite strict attention towards the top of the papillary face. A couple of cm away on the top of the papilla, approximately a cm and a half from the "flat face" there was a button like area appearing consistent with papillary mucosa from an aberrant duct. It was probed gently with the tip curved upward which admitted the cannula and then a guidewire went up in an appropriate liver orientation and seated deeply in the liver. Dye injection showed that this was a free common duct injection and the common duct was quite large, possibly 16 to 17 mm. There were no obvious filling defects. It accepted a large amount of dye, 20 cc which gave filling at the intrahepatic ducts. At this point a sphincterotomy was done at a noon orientation. There was no bleeding. The exposed edges demonstrated a papillary villous mucosa suspicious for a tumor. There was no spontaneous bleeding. The wire was left in place and an exchange for brush done and a brushing taken distally. A 10-[place] 5 cm internal size stent was then deployed. There was immediate decompression of the duct. Some dye and bile had spilled when the guidewire was used to hold open the edges of the sphincterotomy, but unless that was done there was no drainage. Once the stent was in place, biopsies were taken from the distal flat face of the papilla and a second area biopsy was taken from the exposed surfaces of the sphincterotomy. The patient tolerated the procedure well and it was terminated. IMPRESSION: 1. Small duodenal diverticulum. 2. Deformed bulbous papilla - suspected tumor possibly a villous adenoma in the distal common bile duct. Biopsies are pending. Most likely she will need reassessment by her primary physician, cardiac consult, and referral to a center with capability of endoscopic ultrasound and complex biliary surgery. Addendum: adenocarcinoma on both bx and cytology [id number]/[facility] #: [id number] [facility]
[2018-12-17] MEDS: Piperacillin/Tazobac ADVAN(*) 3.375 GM in NS 0.9% 100 ML* 100 ML IVPB SCH (05:09)
[2018-12-17 07:26] VITALS: BP 140/69
[2018-12-17] MEDS: Mometasone/Formoter 200/5 MDI INH SCH (08:29)
[2018-12-17] MEDS ORDERED: predniSONE TAB* 5 MG PO SCH (09:00)
--- NOTE | 2018-12-17 20:54 | DS ---
CC: Dr. Ramirez; Dr. Barraza * DISCHARGE SUMMARY: DATE OF ADMISSION: 12/13/18 DATE OF DISCHARGE: 12/17/18 PRIMARY CARE PROVIDER: Dr. Ramirez. PRINCIPAL DIAGNOSES: Cholangitis and Escherichia coli bacteremia. SECONDARY DIAGNOSIS: Severe persistent asthma. DISCHARGE MEDICATIONS: 1. Prednisone 5 mg p.o. daily. 2. Nocatee-3 fatty acid 1 cap p.o. daily. 3. Multivitamin 1 tab p.o. daily. 4. Singulair 10 mg p.o. daily. 5. Advair 250/50 one puff inhaled twice daily. 6. Flonase one squirt to each nostril daily. 7. Calcium plus D one tab p.o. daily. 8. Tylenol 650 mg p.o. q.4 hours p.r.n. for pain. 9. Amlodipine 10 mg p.o. daily. 10. Augmentin 875 mg p.o. b.i.d. x9 days. HOSPITAL COURSE: Ms. Thibodeaux is a 78-year-old female who presented to the emergency room on 12/13/18 with complaints of shaking chills and dry heaves. She was found to have cholangitis on presentation to the emergency room. Ultimately, blood cultures that were drawn on admission came back positive for E. coli bacteremia. Due to the concerns of cholangitis, the patient underwent ERCP on 12/16/18. Dr. Barraza reported a deformed bulbous papilla, which was a suspected tumor; possibly a villous adenoma in the distal common bile duct. Biopsies were pending at the time of the patient leaving the hospital; however, at the time of this dictation the biopsy has returned positive for a well to moderately differentiated adenocarcinoma. The patient is to follow up with Dr. Barraza on 12/21/18 at 1.30 p.m. and an appointment has been scheduled with Dr. Ramirez for 12/28/18 at 3 p.m. Due to the E. coli bacteremia, the patient is going to be treated with a 14-day course of antibiotics. She has had 5 days in the hospital. She will complete 9 more days of Augmentin at home. The patient follows with Dr. Barraza on Friday. He will likely refer her to [facility] for further evaluation and treatment. The patient may need cardiology preoperative evaluation. On the day of discharge, the patient was awake, alert, and oriented, sitting up in bed in no acute distress. Cardiac exam revealed a normal S1, S2 with a regular rate and rhythm. Her lungs were clear. Her abdomen was soft, nontender , and nondistended. She moved all 4 extremities symmetrically. FOLLOWUP CONCERNS: The patient is being discharged home today, 12/17/18. ACTIVITY LEVEL: As tolerated. DIET: Regular as tolerated. CONDITION ON DISCHARGE: Stable. TIME SPENT: Thirty-five minutes were spent discharging this patient. [id number]/[facility] #: [id number] [facility]
== END 2018-12-17 11:00 | disposition home or self-care (01) | DRG 445 ==
LOC: ED 12:31 → SSU 16:25
PROVIDERS: ADMIT Internal Medicine; ATTEND Hospitalist
PROC: 0FD98ZX Extraction of Common Bile Duct, Via Natural or Artificial Opening Endoscopic, Diagnostic (ICD-10-PCS; 2018-12-16)
PROC: 0DB98ZX Excision of Duodenum, Via Natural or Artificial Opening Endoscopic, Diagnostic (ICD-10-PCS; 2018-12-16)
PROC: 0F798DZ Dilation of Common Bile Duct with Intraluminal Device, Via Natural or Artificial Opening Endoscopic (ICD-10-PCS; principal; 2018-12-16 16:00)
DX: K83.09 Other cholangitis (principal); R78.81 Bacteremia; C24.0 Malignant neoplasm of extrahepatic bile duct; Z68.1 Body mass index [BMI] 19.9 or less, adult; C17.0 Malignant neoplasm of duodenum; B96.20 Unspecified Escherichia coli [E. coli] as the cause of diseases classified elsewhere; J45.50 Severe persistent asthma, uncomplicated; I10 Essential (primary) hypertension; D69.6 Thrombocytopenia, unspecified; R79.1 Abnormal coagulation profile; K80.20 Calculus of gallbladder without cholecystitis without obstruction; K83.8 Other specified diseases of biliary tract; M19.90 Unspecified osteoarthritis, unspecified site; Z96.1 Presence of intraocular lens; E66.8 Other obesity; K44.9 Diaphragmatic hernia without obstruction or gangrene; K57.10 Diverticulosis of small intestine without perforation or abscess without bleeding; J44.9 Chronic obstructive pulmonary disease, unspecified; Z86.711 Personal history of pulmonary embolism; Z79.52 Long term (current) use of systemic steroids; Z88.1 Allergy status to other antibiotic agents; Z88.8 Allergy status to other drugs, medicaments and biological substances; Z91.041 Radiographic dye allergy status; Z82.49 Family history of ischemic heart disease and other diseases of the circulatory system; Z85.828 Personal history of other malignant neoplasm of skin; Z98.42 Cataract extraction status, left eye; Z98.41 Cataract extraction status, right eye; Z86.73 Personal history of transient ischemic attack (TIA), and cerebral infarction without residual deficits
CPT/HCPCS: 36415; 71045; 74176; 74330; 76705; 80048; 80053; 83605; 83690; 83880; 84484; 85025; 85027; 85610; 85730; 87040; 87077; 87186; 87205; 88112; 88305; 88341; 88342; 93005; 94640; 99285; A9270-GY; C1769; C1876; J0360; J1200; J1650; J1720; J2405; J2543; J3010; J3430; J7512

== ENCOUNTER 2019-05-01 11:29 | Emergency (ER) | payer MEDICARE, BC ==
--- OUTSIDE RECORDS SUMMARY | 2019-05-01 12:04 | XMS REPORT ---
:1940 Author Organization [facility] Care Team Providers Name Role Phone Unavailable Unavailable Unavailable Problems Condition Condition Condition Status Onset Resolution Last Treating Comments Name Details Category Date Date Treatment Clinician Date Gastropares Gastropares Diagnosis Active 2018-05 Becky is is 06-23 Carrier RN Pain frequent Pain Mgmt Active 2018-05 Ami pain 06-25 [place] 11:38: [id number] 00 Cardio edema Cardiovasc Active 2018-05 Ami ular 06-25 [place] 11:38: [id number] 00 Respiratory dyspnea Respirator Active 2018-05 Ami present y 06-25 [place] 11:38: [id number] Respiratory Incentive Respirator Active 2018-05 Ami Spirometer y 06-25 [place] /[place] 11:38: [id number] Device 00 treatments in home Sensory impaired Sensory Active 2018-05 Ami hearing 06-25 [place] 11:38: [id number] 00 Integument skin Integument Active 2018-05 Ami integrity 06-25 [place] risk 11:38: [id number] Nutrition nutritional Nutrition Active 2018-05 Ami risk 06-25 [place] 11:38: [id number] 00 Nutrition enteral Nutrition Active 2018-05 Ami therapy 06-25 [place] 11:38: [id number] Nutrition nutritional Nutrition Active 2018-05 Ami restriction 06-25 [place] s 11:38: [id number] 00 Elimination urinary Eliminatio Active 2018-05 Ami incontinenc n 06-25 [place] e 11:38: [id number] 00 Neuro confusion Neuro/Emot Active 2018-05 Ami present ion 06-25 [place] 11:38: [id number] 00 Activity ADL Activity Active 2018-05 Ami assistance 06-25 [place] required 11:38: [id number] 00 Activity self-care Activity Active 2018-05 Ami deficit 06-25 [place] 11:38: [id number] 00 Safety fall risk Safety Active 2018-05 Ami factor 06-25 [place] present 11:38: [id number] 00 Safety risk for Safety Active 2018-05 Ami hospitaliza 06-25 [place] tion 11:38: [id number] 00 Medication oral med Meds Active 2018-05 Ami assistance 06-25 [place] required 11:38: [id number] 00 Medication knowledge/s Meds Active 2018-05 Ami kill 06-25 [place] deficit: pt 11:38: [id number] 00 Musculoskel transfer Musculoske Active 2018-05 Ami etal assistance letal 06-25 [place] required 11:38: [id number] 00 Musculoskel requires Musculoske Active 2018-05 Ami etal human letal 06-25 [place] assist to 11:38: [id number] leave home 00 Allergies, Adverse Reactions, Alerts Allergy Name Allergy Status Severity Reaction(s) Onset Inactive Treating Comments Type Date Date Clinician iodixanol Base Active Unknown Hives 2018-05 Jenifer Beam Ingredient 2-19 azithromycin Base Active Unknown Hives 2018-05 Jenifer Beam Ingredient 2-19 Iodinated Allergen Active Unknown Hives 2018-05 Jenifer Beam Contrast Group 2-19 Media iodine Base Active Unknown Hives 2018-05 Jenifer Beam Ingredient 2-19 levofloxacin Base Active Unknown Rash 2018-05 Jenifer Beam Ingredient 2-19 shellfish Base Active Unknown Hives 2018-05 Jenifer Beam derived Ingredient 2-19 Medications Ordered Filled Start Stop Current Ordering Indication Dosage Frequency Signature Comments Components Medication Medication Date Date Medication? Clinician (SIG) Name Name predniSONE predniSONE 2018-05 Yes Breiman Unknown Unknown 5 mg tablet 5 mg tablet 06-25 David PEREIRA omeprazole omeprazole 2018-05- Yes Breiman Unknown Unknown 20 mg 20 mg 06-25 David PEREIRA capsule,del capsule,del ayed ayed release release Creon Creon 2018-05 Yes Breiman Unknown Unknown 12,000-38,0 12,000-38,0 06-25 David PEREIRA 00-60,000 00-60,000 unit unit capsule,del capsule,del ayed ayed release release amLODIPine amLODIPine 2018-05 Yes Breiman Unknown Unknown 5 mg tablet 5 mg tablet 06-25 David PEREIRA sucralfate sucralfate 2018-05 Yes Breiman Unknown Unknown 100 mg/mL 100 mg/mL 06-25 David PEREIRA oral oral suspension suspension fluticasone fluticasone 2018-05 Yes Breiman Unknown Unknown prop.50 mcg prop.50 mcg 06-25 David PEREIRA spray,suspe spray,suspe n-sod.chlor n-sod.chlor more 0.9% more 0.9% nasal spray nasal spray kit kit Advair Advair 2018-05 Yes Breiman Unknown Unknown Diskus 250 Diskus 250 06-25 David PEREIRA mcg-50 mcg-50 mcg/dose mcg/dose powder for powder for inhalation inhalation metoclopram metoclopram 2018-05 Yes Breiman Unknown Unknown more 5 mg/5 more 5 mg/5 06-25 David PEREIRA mL oral mL oral solution solution predniSONE predniSONE 2018-05 Yes Breiman Unknown Unknown 5 mg tablet 5 mg tablet 06-25 David PEREIRA omeprazole omeprazole 2018-05 Yes Breiman Unknown Unknown 20 mg 20 mg 06-25 David PEREIRA capsule,del capsule,del ayed ayed release release Vital Signs Vital Name Observation Time Observation Value Comments SYSTOLIC mm[Hg] 2019-04-24 18:09:28 132 mm[Hg] mm[Hg] Method: Sit SYSTOLIC mm[Hg] 2019-04-24 18:09:28 140 mm[Hg] mm[Hg] Method: Stand DIASTOLIC mm[Hg] 2019-04-24 18:09:28 84 mm[Hg] mm[Hg] Method: Sit DIASTOLIC mm[Hg] 2019-04-24 18:09:28 90 mm[Hg] mm[Hg] Method: Stand PULSE 2019-04-24 18:09:28 88 /min /min RESP RATE 2019-04-24 18:09:28 16 /min /min TEMP 2019-04-24 18:09:28 97.3 [degF] Procedures This patient has no known procedures. Results This patient has no known results.
--- OUTSIDE RECORDS SUMMARY | 2019-05-01 12:04 | XMS REPORT ---
:1940 Author Organization [facility] Care Team Providers Name Role Phone Unavailable Unavailable Unavailable Problems Condition Condition Condition Status Onset Resolution Last Treating Comments Name Details Category Date Date Treatment Clinician Date Gastropares Gastropares Diagnosis Active 2018-05 Becky is is 2-19 Carrier RN Allergies, Adverse Reactions, Alerts Allergy Name Allergy [...] Ingredient 2-19 levofloxacin Base Active Unknown Rash 2018- Jenifer Beam Ingredient 2-19 shellfish Base Active Unknown Hives 2019 Jenifer Beam derived Ingredient 2-19 Medications Ordered Filled Start Stop Current Ordering Indication Dosage Frequency Signature Comments Components Medication Medication Date Date Medication? Clinician (SIG) Name Name No Known No Known No None None None Medications Medications For This For This Patient Patient Procedures This patient has no known procedures. Results This patient has no known results.
--- OUTSIDE RECORDS SUMMARY | 2019-05-01 12:04 | XMS REPORT ---
:1940 Author Organization 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 Dysphagia, Dysphagia, Diagnosis Active 2018-05 Becky unspecified unspecified - Carrier RN Essential Essential Diagnosis Active 2018-05 Becky (primary) (primary) 2 Carrier RN hypertensio hypertensio n n 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 2- Carrier RN pulmonary pulmonary disease, disease, unspecified unspecified Gastro-esop Gastro-esop Diagnosis Active 2018-05 Becky hageal hageal 2-10 Carrier RN reflux reflux disease disease without without esophagitis esophagitis 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, right tis, 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, left tis, 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) (current) Carrier RN use of use of systemic systemic steroids steroids Personal Personal Diagnosis Active Becky history of history of Carrier RN other other 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 Personal Personal Diagnosis Active Becky history of history of Carrier RN 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 Pain frequent Pain Mgmt Active 2018-05 Ami pain 06-25 [place] 11:38: [id number] 00 Cardio edema Cardiovasc Active 2018-05 Ami ular 06-25 [place] 11:38: [id number] 00 Respiratory dyspnea Respirator Active 2018-05 Ami present y 06-25 [place] 11:38: [id number] 00 Respiratory Incentive Respirator Active 2018-05 Ami Spirometer y 06-25 [place] /[place] 11:38: [id number] Device 00 treatments in home Sensory impaired Sensory Active 2018-05 Ami hearing 06-25 [place] 11:38: [id number] 00 Integument skin Integument Active 2018-05 Ami integrity 06-25 [place] risk 11:38: [id number] 00 Nutrition nutritional Nutrition Active 2018-05 Ami risk 06-25 [place] 11:38: [id number] 00 Nutrition enteral Nutrition Active 2018-05 Ami therapy 06-25 [place] 11:38: [id number] 00 Nutrition nutritional Nutrition Active 2018-05 Ami restriction 06-25 [place] s 11:38: [id number] 00 Elimination urinary Eliminatio Active 2018-05 Ami incontinenc n 06-25 [place] e 11:38: [id number] 00 Neuro confusion Neuro/Emot Active 2018-05 Ami present ion 06-25 [place] 11:38: [id number] 00 Activity ADL Activity Active 2018-05 Ami assistance 06-25 [place] required 11:38: [id number] 00 Activity self-care Activity Active 2018-05 Ami deficit 06-25 [place] 11:38: [id number] 00 Safety fall risk Safety Active 2018-05 Ami factor 06-25 [place] present 11:38: [id number] 00 Safety risk for Safety Active 2018-05 Ami hospitaliza 06-25 [place] tion 11:38: [id number] 00 Medication oral med Meds Active 2018-05 Ami assistance 06-25 [place] required 11:38: [id number] 00 Medication knowledge/s Meds Active 2018-05 Ami kill 06-25 [place] deficit: pt 11:38: [id number] 00 Musculoskel transfer Musculoske Active 2018-05 Ami etal assistance letal 06-25 [place] required 11:38: [id number] 00 Musculoskel requires Musculoske Active 2018-05 Ami etal human letal 06-25 [place] assist to 11:38: [id number] leave home 00 Safety can be left Safety Active 2018-05 Sebas alone for 06-27 Ale mcdermott short 14:15: [id number] periods 00 Bed mobility/tr PT/OT: Bed Active 2018-05 [place] Mobility/Tr ansfer Mobility/T 06-27 Ale ansfer device ransfer 14:15: [id number] present 00 Bed transfer PT/OT: Bed Active 2018-05 [place] Mobility/Tr deficit: Mobility/T 06-27 Ale penafer shower/tub ransfer 14:15: [id number] 00 Bed transfer PT/OT: Bed Active 2018-05 [place] Mobility/Tr deficit: Mobility/T 06-27 Ale penafer vehicle ransfer 14:15: [id number] 00 OT: Self self-care OT: Active 2018-05 Sebas Care deficit Self-Care 06-27 Ale 14:15: [id number] 00 Gait/Locomo gait PT/OT: Active 2018-05 Se[place] tion assistive Gait/Locom 06-27 Ale problems device otion 14:15: [id number] present 00 Allergies, Adverse Reactions, Alerts Allergy Name [...] 2018-05 Yes Breiman Unknown Unknown 12,000-38,0 12,000-38,0 - David PEREIRA 00-60,000 00-60,000 unit unit capsule,del [...] Observation Time Observation Value Comments SYSTOLIC mm[Hg] 2019-04-29 18:09:33 138 mm[Hg] mm[Hg] Method: Sit SYSTOLIC mm[Hg] 2019-04-24 18:09:28 140 mm[Hg] mm[Hg] Method: Stand DIASTOLIC mm[Hg] 2019-04-29 18:09:33 80 mm[Hg] mm[Hg] Method: Sit DIASTOLIC mm[Hg] 2019-04-24 18:09:28 90 mm[Hg] mm[Hg] Method: Stand PULSE 2019-04-27 18:09:31 88 /min /min RESP RATE 2019-04-29 18:09:33 16 /min /min TEMP 2019-04-29 18:09:33 98.5 [degF] Procedures This patient has no known procedures. Results This patient has no known results.
--- OUTSIDE RECORDS SUMMARY | 2019-05-01 12:04 | XMS REPORT ---
:1940 Author Organization [facility] Care Team Providers Name Role Phone Unavailable Unavailable Unavailable Problems Condition Condition Condition Status Onset Resolution Last Treating Comments Name Details Category Date Date Treatment Clinician Date Gastropares Gastropares Diagnosis Active 2018-05 Becky is is 06-23 Carrier RN Pain frequent Pain Mgmt Active 2018-05 Ami pain 06-25 [place] 11:38: [id number] 00 Cardio edema Cardiovasc Active 2018-05 Ami ular 06-25 [place] 11:38: [id number] 00 Respiratory dyspnea Respirator Active 2018-05 Ami present y 06-25 [place] 11:38: [id number] 00 Respiratory Incentive Respirator Active 2018-05 Ami Spirometer y 06-25 [place] /[place] 11:38: [id number] Device 00 treatments in home Sensory impaired Sensory Active 2018-05 Ami hearing 06-25 [place] 11:38: [id number] 00 Integument skin Integument Active 2018-05 Ami integrity 06-25 [place] risk 11:38: [id number] 00 Nutrition nutritional Nutrition Active 2018-05 Ami risk 06-25 [place] 11:38: [id number] 00 Nutrition enteral Nutrition Active 2018-05 Ami therapy 06-25 [place] 11:38: [id number] 00 Nutrition nutritional Nutrition Active 2018-05 Ami restriction 06-25 [place] s 11:38: [id number] 00 Elimination urinary Eliminatio Active 2018-05 Ami incontinenc n 06-25 [place] e 11:38: [id number] 00 Neuro confusion Neuro/Emot Active 2018-05 Ami present ion 06-25 [place] 11:38: [id number] 00 Activity ADL Activity Active 2018-05 Ami assistance 06-25 [place] required 11:38: [id number] 00 Activity self-care Activity Active 2018-05 Ami deficit 06-25 [place] 11:38: [id number] 00 Safety fall risk Safety Active 2018-05 Ami factor 06-25 [place] present 11:38: [id number] 00 Safety risk for Safety Active 2018-05 Ami hospitaliza 06-25 [place] tion 11:38: [id number] 00 Medication oral med Meds Active 2018-05 Ami assistance 06-25 [place] required 11:38: [id number] 00 Medication knowledge/s Meds Active 2018-05 Ami kill 06-25 [place] deficit: pt 11:38: [id number] 00 Musculoskel transfer Musculoske Active 2018-05 Ami etal assistance letal 06-25 [place] required 11:38: [id number] 00 Musculoskel requires Musculoske Active 2018-05 Ami etal human letal 06-25 [place] assist to 11:38: [id number] leave home 00 Safety can be left Safety Active 2018-05 [place] alone for 06-27 Ale only short 14:15: [id number] periods 00 Bed mobility/tr PT/OT: Bed Active 2018-05 [place] Mobility/Tr ansfer Mobility/T 06-27 [place] ansfer device ransfer 14:15: [id number] present 00 Bed transfer PT/OT: Bed Active 2018-05 [place] Mobility/Tr deficit: Mobility/T 06-27 [place] ansfer shower/tub ransfer 14:15: [id number] 00 Bed transfer PT/OT: Bed Active 2018-05 [place] Mobility/Tr deficit: Mobility/T 06-27 [place] ansfer vehicle ransfer 14:15: [id number] 00 OT: Self self-care OT: Active 2018-05 Sebas Care deficit Self-Care 06-27 [place] 14:15: [id number] 00 Gait/Locomo gait PT/OT: Active 2018-05 [place] tion assistive Gait/Locom 06-27 Ale problems device otion 14:15: [id number] present 00 Allergies, Adverse Reactions, Alerts Allergy Name Allergy Status Severity Reaction(s) Onset Inactive Treating Comments Type Date Date Clinician iodixanol Base Active Unknown Hives 2018-05 Jenifer Beam Ingredient 2-19 azithromycin Base Active Unknown Hives 2018-05 Jenifer Beam Ingredient 2-19 Iodinated Allergen Active Unknown Hives 2018-05 Jenifer Beam Contrast Group 2-19 Media iodine Base Active Unknown Hives 2018-05 Jenifer Beam Ingredient 06-23 levofloxacin Base Active Unknown Rash 2018-05 Jenifer Beam Ingredient 06-23 shellfish Base Active Unknown Hives 2018-05 Jenifer Beam derived Ingredient 06-23 Medications Ordered Filled Start Stop Current Ordering [...] Observation Time Observation Value Comments SYSTOLIC mm[Hg] 2019-04-26 18:09:30 130 mm[Hg] mm[Hg] Method: Sit SYSTOLIC mm[Hg] 2019-04-24 18:09:28 140 mm[Hg] mm[Hg] Method: Stand DIASTOLIC mm[Hg] 2019-04-26 18:09:30 84 mm[Hg] mm[Hg] Method: Sit DIASTOLIC mm[Hg] 2019-04-24 18:09:28 90 mm[Hg] mm[Hg] Method: Stand PULSE 2019-04-26 18:09:30 88 /min /min RESP RATE 2019-04-24 18:09:28 16 /min /min TEMP 2019-04-24 18:09:28 97.3 [degF] Procedures This patient has no known procedures. Results This patient has no known results.
--- OUTSIDE RECORDS SUMMARY | 2019-05-01 12:04 | XMS REPORT ---
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 (current) (current) Carrier RN [...] Pain Mgmt Active 2018-05 Ami pain 06-25 [place] 11:38: [id number] 00 Cardio edema Cardiovasc Active 2018-05 Ami ular 06-25 [place] 11:38: [id number] 00 Respiratory dyspnea Respirator Active 2018-05 Ami present y 06-25 [place] 11:38: [id number] 00 Respiratory Incentive Respirator Active 2018-05 Ami Spirometer y 06-25 [place] /[place] 11:38: [id number] Device 00 treatments in home Sensory impaired Sensory Active 2018-05 Ami hearing 06-25 [place] 11:38: [id number] 00 Integument skin Integument Active 2018-05 Ami integrity 06-25 [place] risk 11:38: [id number] 00 Nutrition nutritional Nutrition Active 2018-05 Ami risk 06-25 [place] 11:38: [id number] 00 Nutrition enteral Nutrition Active 2018-05 Ami therapy 06-25 [place] 11:38: [id number] 00 Nutrition nutritional Nutrition Active 2018-05 Ami restriction 06-25 [place] s 11:38: [id number] 00 Elimination urinary Eliminatio Active 2018-05 Ami incontinenc n 06-25 [place] e 11:38: [id number] 00 Neuro confusion Neuro/Emot Active 2018-05 Ami present ion 06-25 [place] 11:38: [id number] 00 Activity ADL Activity Active 2018-05 Ami assistance 06-25 [place] required 11:38: [id number] 00 Activity self-care Activity Active 2018-05 Ami deficit 06-25 [place] 11:38: [id number] 00 Safety fall risk Safety Active 2018-05 Ami factor 06-25 [place] present 11:38: [id number] 00 Safety risk for Safety Active 2018-05 Ami hospitaliza 06-25 [place] tion 11:38: [id number] 00 Medication oral med Meds Active 2018-05 Ami assistance 06-25 [place] required 11:38: [id number] 00 Medication knowledge/s Meds Active 2018-05 Ami kill 06-25 [place] deficit: pt 11:38: [id number] 00 Musculoskel transfer Musculoske Active 2018-05 Ami etal assistance letal 06-25 [place] required 11:38: [id number] 00 Musculoskel requires Musculoske Active 2018-05 Ami etal human letal 06-25 [place] assist to 11:38: [id number] leave home 00 Safety can be left Safety Active 2018-05 Sebas alone for 06-27 Ale mcdermott short 14:15: [id number] periods 00 Bed mobility/tr PT/OT: Bed Active 2018-05 [place] Mobility/Tr ansfer Mobility/T 06-27 Ale ansfer device ransfer 14:15: [id number] present 00 Bed transfer PT/OT: Bed Active 2018-05 [place] Mobility/Tr deficit: Mobility/T 06-27 Ale penafer shower/tub ransfer 14:15: [id number] 00 Bed transfer PT/OT: Bed Active 2018-05 [place] Mobility/Tr deficit: Mobility/T 06-27 Ale penafer vehicle ransfer 14:15: [id number] 00 OT: Self self-care OT: Active 2018-05 Sebas Care deficit Self-Care 06-27 Ale 14:15: [id number] 00 Gait/Locomo gait PT/OT: Active 2018-05 Sebas tion assistive Gait/Locom 06-27 Ale problems device otion 14:15: [id number] present 00 Allergies, Adverse Reactions, Alerts Allergy [...]
--- OUTSIDE RECORDS SUMMARY | 2019-05-01 12:04 | XMS REPORT ---
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 Becky (current) (current) Carrier RN [...] Pain Mgmt Active 2018-05 Ami pain 06-25 [place] 11:38: [id number] 00 Cardio edema Cardiovasc Active 2018-05 Ami ular 06-25 [place] 11:38: [id number] 00 Respiratory dyspnea Respirator Active 2018-05 Ami present y 06-25 [place] 11:38: [id number] 00 Respiratory Incentive Respirator Active 2018-05 Ami Spirometer y 06-25 [place] /[place] 11:38: [id number] Device 00 treatments in home Sensory impaired Sensory Active 2018-05 Ami hearing 06-25 [place] 11:38: [id number] 00 Integument skin Integument Active 2018-05 Ami integrity 06-25 [place] risk 11:38: [id number] 00 Nutrition nutritional Nutrition Active 2018-05 Ami risk 06-25 [place] 11:38: [id number] 00 Nutrition enteral Nutrition Active 2018-05 Ami therapy 06-25 [place] 11:38: [id number] 00 Nutrition nutritional Nutrition Active 2018-05 Ami restriction 06-25 [place] s 11:38: [id number] 00 Elimination urinary Eliminatio Active 2018-05 Ami incontinenc n 06-25 [place] e 11:38: [id number] 00 Neuro confusion Neuro/Emot Active 2018-05 Ami present ion 06-25 [place] 11:38: [id number] 00 Activity ADL Activity Active 2018-05 Ami assistance 06-25 [place] required 11:38: [id number] 00 Activity self-care Activity Active 2018-05 Ami deficit 06-25 [place] 11:38: [id number] 00 Safety fall risk Safety Active 2018-05 Ami factor 06-25 [place] present 11:38: [id number] 00 Safety risk for Safety Active 2018-05 Ami hospitaliza 06-25 [place] tion 11:38: [id number] 00 Medication oral med Meds Active 2018-05 Ami assistance 06-25 [place] required 11:38: [id number] 00 Medication knowledge/s Meds Active 2018-05 Ami kill 06-25 [place] deficit: pt 11:38: [id number] 00 Musculoskel transfer Musculoske Active 2018-05 Ami etal assistance letal 06-25 [place] required 11:38: [id number] 00 Musculoskel requires Musculoske Active 2018-05 Ami etal human letal 06-25 [place] assist to 11:38: [id number] leave home 00 Safety can be left Safety Active 2018-05 Sebas alone for 06-27 Ale mcdermott short 14:15: [id number] periods 00 Bed mobility/tr PT/OT: Bed Active 2018-05 [place] Mobility/Tr ansfer Mobility/T 06-27 Ale ansfer device ransfer 14:15: [id number] present 00 Bed transfer PT/OT: Bed Active 2018-05 [place] Mobility/Tr deficit: Mobility/T 06-27 Ale penafer shower/tub ransfer 14:15: [id number] 00 Bed transfer PT/OT: Bed Active 2018-05 Se[place] Mobility/Tr deficit: Mobility/T 06-27 Ale penafer vehicle ransfer 14:15: [id number] 00 OT: Self self-care OT: Active 2018-05 Sebas Care deficit Self-Care 06-27 Ale 14:15: [id number] 00 Gait/Locomo gait PT/OT: Active 2018-05 Se[place] tion assistive Gait/Locom 06-27 Ale problems device otion 14:15: [id number] present 00 Allergies, Adverse Reactions, Alerts Allergy [...] 5 mg/5 more 5 mg/5 06-25 David PREEIRA mL oral mL oral solution solution predniSONE predniSONE 2018-05 Yes Breiman Unknown Unknown 5 mg tablet 5 mg tablet 06-25 David PEREIRA omeprazole omeprazole 2018-05 Yes Breiman Unknown Unknown 20 mg 20 mg 06-25 David PEREIRA capsule,del capsule,del ayed ayed release release Vital Signs Vital Name Observation Time Observation Value Comments SYSTOLIC mm[Hg] 2019-04-27 18:09:31 140 mm[Hg] mm[Hg] Method: Sit SYSTOLIC mm[Hg] 2019-04-24 18:09:28 140 mm[Hg] mm[Hg] Method: Stand DIASTOLIC mm[Hg] 2019-04-27 18:09:31 70 mm[Hg] mm[Hg] Method: Sit DIASTOLIC mm[Hg] 2019-04-24 18:09:28 90 mm[Hg] mm[Hg] Method: Stand PULSE 2019-04-27 18:09:31 88 /min /min RESP RATE 2019-04-27 18:09:31 16 /min /min TEMP 2019-04-27 18:09:31 98.5 [degF] Procedures This patient has no known procedures. Results This patient has no known results.
--- OUTSIDE RECORDS SUMMARY | 2019-05-01 12:04 | XMS REPORT ---
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 Becky (current) (current) Carrier RN [...] Pain Mgmt Active 2018-05 Ami pain 06-25 [place] 11:38: [id number] 00 Cardio edema Cardiovasc Active 2018-05 Ami ular 06-25 [place] 11:38: [id number] 00 Respiratory dyspnea Respirator Active 2018-05 Ami present y 06-25 [place] 11:38: [id number] 00 Respiratory Incentive Respirator Active 2018-05 Ami Spirometer y 06-25 [place] /[place] 11:38: [id number] Device 00 treatments in home Sensory impaired Sensory Active 2018-05 Ami hearing 06-25 [place] 11:38: [id number] 00 Integument skin Integument Active 2018-05 Ami integrity 06-25 [place] risk 11:38: [id number] 00 Nutrition nutritional Nutrition Active 2018-05 Ami risk 06-25 [place] 11:38: [id number] 00 Nutrition enteral Nutrition Active 2018-05 Ami therapy 06-25 [place] 11:38: [id number] 00 Nutrition nutritional Nutrition Active 2018-05 Ami restriction 06-25 [place] s 11:38: [id number] 00 Elimination urinary Eliminatio Active 2018-05 Ami incontinenc n 06-25 [place] e 11:38: [id number] 00 Neuro confusion Neuro/Emot Active 2018-05 Ami present ion 06-25 [place] 11:38: [id number] 00 Activity ADL Activity Active 2018-05 Ami assistance 06-25 [place] required 11:38: [id number] 00 Activity self-care Activity Active 2018-05 Ami deficit 06-25 [place] 11:38: [id number] 00 Safety fall risk Safety Active 2018-05 Ami factor 06-25 [place] present 11:38: [id number] 00 Safety risk for Safety Active 2018-05 Ami hospitaliza 06-25 [place] tion 11:38: [id number] 00 Medication oral med Meds Active 2018-05 Ami assistance 06-25 [place] required 11:38: [id number] 00 Medication knowledge/s Meds Active 2018-05 Ami kill 06-25 [place] deficit: pt 11:38: [id number] 00 Musculoskel transfer Musculoske Active 2018-05 Ami etal assistance letal 06-25 [place] required 11:38: [id number] 00 Musculoskel requires Musculoske Active 2018-05 Ami etal human letal 06-25 [place] assist to 11:38: [id number] leave home 00 Safety can be left Safety Active 2018-05 Sebas alone for 06-27 Ale mcdemrott short 14:15: [id number] periods 00 Bed mobility/tr PT/OT: Bed Active 2018-05 [place] Mobility/Tr ansfer Mobility/T 06-27 Ale ansfer device ransfer 14:15: [id number] present 00 Bed transfer PT/OT: Bed Active 2018-05 [place] Mobility/Tr deficit: Mobility/T 06-27 Ale penafer shower/tub ransfer 14:15: [id number] 00 Bed transfer PT/OT: Bed Active 2018-05 [place] Mobility/Tr deficit: Mobility/T 06-27 Ale penafer vehicle ransfer 14:15: [id number] 00 OT: Self self-care OT: Active 2018-05 Sebas Care deficit Self-Care 06-27 Ale 14:15: [id number] 00 Gait/Locomo gait PT/OT: Active 2018-05 Se[place] tion assistive Gait/Locom 06-27 Ale problems device otion 14:15: [id number] present 00 Allergies, Adverse Reactions, Alerts Allergy [...] more 5 mg/5 more 5 mg/5 06-25 [place] PEREIRA mL oral mL oral solution solution [...]
[2019-05-01 12:40] VITALS: BP 171/79
--- NOTE | 2019-05-01 12:57 | ED ---
Complex/Multi-Sys Presentation - HPI Summary HPI Summary: Pt is a 79yo with a history of pancreatic CA and recent whipple with a J tube presenting to the from per PCP office for flush. Pt placing nutrition and medications in J tube. She states she has been crushing them, but not using liquid to thin it. Denies any other complications or pain around the site. - History Of Current Complaint Chief Complaint: EDGeneral Time Seen by Provider: 05/01/19 11:43 Hx Obtained From: Patient Onset/Duration: Sudden Onset Timing: Constant Severity Currently: Mild Severity Initially: Mild Location: Negative - Allergies/Home Medications Allergies/Adverse Reactions: Allergies Allergy/AdvReac Type Severity Reaction Status Date / Time iodixanol [From Visipaque] Allergy Intermediate Hives Verified 05/01/19 11:40 azithromycin Allergy Hives Verified 05/01/19 11:40 Iodinated Contrast Media Allergy Hives Verified 05/01/19 11:40 [Iodinated Contrast- Oral and IV Dye] iodine Allergy Hives Verified 05/01/19 11:40 levofloxacin Allergy Rash Verified 05/01/19 11:40 shellfish derived Allergy Hives Verified 05/01/19 11:40 PMH/Surg Hx/FS Hx/Imm Hx Previously Healthy: Yes Endocrine/Hematology History: Denies: Hx Diabetes, Hx Sickle Cell Disease, Hx Thyroid Disease Cardiovascular History: Reports: Hx Hypertension Respiratory History: Reports: Hx Asthma, Hx Chronic Obstructive Pulmonary Disease (COPD), Hx Pulmonary Embolism - 1975, NO MEDICAL DX FOR EMBOLISM,NEVER REOCCURENCE GI History: Reports: Hx Jaundice - AT AGE 10 HAD "YELLOW JAUNDICE" Denies: Hx Ulcer History: Reports: Hx Renal Disease - abnormal gfr Denies: Other Problems/Disorders Musculoskeletal History: Reports: Hx Arthritis - "a little" Sensory History: Reports: Hx Cataracts - Both eyes, Hx Contacts or Glasses, Other Sensory Impairments - lens replacement Denies: Hx Hearing Aid Opthamlomology History: Reports: Hx Cataracts - Both eyes, Hx Contacts or Glasses, Other Sensory Impairments - lens replacement Neurological History: Denies: Other Neuro Impairments/Disorders - Cancer History Cancer Type, 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 [place] [facility] [place]. cataracts- Hx Anesthesia Reactions: No - Immunization History Hx Pertussis Vaccination: No Immunizations Up to Date: Yes Infectious Disease History: No Infectious Disease History: Denies: Hx Hepatitis, Hx Human Immunodeficiency Virus (HIV), Hx Shingles, Traveled Outside the [place] in Last 30 Days - Family History Known Family History: Negative: Diabetes - Social History Occupation: Unemployed Lives: With Family Alcohol Use: None Hx Substance Use: No Substance Use Type: Reports: None Hx Tobacco Use: No Smoking Status (MU): Never Smoked Tobacco Have You Smoked in the Last Year: No Review of Systems Negative: Fever, Chills, Fatigue, Skin Diaphoresis Negative: Chest Pain Negative: Shortness Of Breath Negative: Arthralgia, Myalgia Negative: Rash, Bruising Neurological: Negative All Other Systems Reviewed And Are Negative: Yes Physical Exam Triage Information Reviewed: Yes Vital Signs On Initial Exam: Initial Vitals Temp Pulse Resp BP Pulse Ox 98.2 F 63 14 151/76 97 05/01/19 11:37 05/01/19 11:37 05/01/19 11:37 05/01/19 11:37 05/01/19 11:37 Vital Signs Reviewed: Yes Appearance: Positive: Well-Appearing, Well-Nourished Skin: Positive: Warm, Skin Color Reflects Adequate Perfusion Head/Face: Positive: Normal Head/Face Inspection Eyes: Positive: Normal, Conjunctiva Clear Respiratory/Lung Sounds: Positive: Clear to Auscultation, Breath Sounds Present Cardiovascular: Positive: Pulses are Symmetrical in both Upper and Lower Extremities Abdomen Description: Positive: Other: - J tube present Neurological: Positive: Alert, Oriented to Person Place, Time Psychiatric: Positive: Normal, Affect/Mood Appropriate AVPU Assessment: Alert Procedures - Sedation Patient Received Moderate/Deep Sedation with Procedure: No Diagnostics - Vital Signs Vital Signs Temp Pulse Resp BP Pulse Ox 05/01/19 12:38 98.2 F 55 16 171/79 99 05/01/19 11:37 98.2 F 63 14 151/76 97 - Laboratory Lab Statement: Any lab studies that have been ordered have been reviewed, and results considered in the medical decision making process. Complex Multi-Symp Course/Dx Course Of Treatment: Used 60ml piston syringe to the tube. Pulled back the plunger to help dislodge the clog. Filled the flush syringe with warm water, reattached it to the tube, successful flush. Pt OK for discharge at this time. - Diagnoses Differential Diagnoses/HQI/PQRI: Other - flush of j tube Provider Diagnoses: Jejunostomy tube present Discharge ED - Sign-Out/Discharge Documenting (check all that apply): Patient Departure - Discharge Plan Condition: Stable Disposition: HOME Referrals: David Ramirez MD [Primary Care Provider] - - Billing Disposition and Condition Condition: STABLE Disposition: Home - Attestation Statements Provider Attestation: I was available for consultation for this patient. I did not evaluate the patient or participate in any medical decision making or disposition decisions unless I am specifically named in the chart as having consulted on the patient. If I have consulted on the patient, please see my own ED note on the patient encounter. Christopher Escoto MD
== END 2019-05-01 12:35 | disposition home or self-care (01) ==
LOC: ED 11:29
DX: Z43.4 Encounter for attention to other artificial openings of digestive tract (principal); I10 Essential (primary) hypertension; J44.9 Chronic obstructive pulmonary disease, unspecified; Z85.07 Personal history of malignant neoplasm of pancreas; Z79.899 Other long term (current) drug therapy; Z88.1 Allergy status to other antibiotic agents; Z91.041 Radiographic dye allergy status
CPT/HCPCS: 99283